=== PATIENT | male | born 1970 | race African-American/Black ===

== ENCOUNTER → 2017-12-05 | Outpatient (CLI) | payer BC ==
[~2017-12-05] VITALS: Ht 177.8 cm; Wt 127.9 kg
[~2017-12-05] MED LIST: ALDACTONE25 MG PO; CARDIZEM CD180 MG PO; COREG25 MG PO; COZAAR 50 MG TA50 M2 PO; HYDROXYCHLOROQ200 M1 PO; NAPROSYN500 MG PO; NORCO 10-325 T1 EACH PO; NORVASC10 MG PO; PRINIVIL20 MG PO
--- NOTE | ~2017-12-05 | CATHLAB ---
[facility] [place] [address] INVASIVE PROCEDURE REPORT Name: ANGELICA ZAVALETA Room #: REG [facility]#: [id number] Admission: 12/05/17 Attend Phys: Tai Suarez MD Discharge: Date of : 66 Date of Service: 12/05/17 1146 Report #: [id number] THIS REPORT FOR: //name// APPROVED REPORT Study performed: 12/05/2017 09:34:16 Patient Details Patient Status: Out-Patient Room #: The patient is a 47 year-old male Event Personnel Tai Suarez Industrial Truck Operator, Steffen Atkins RN RN, Talha Santos Scrub, Lilia Nino RTR, ANGELA Scrub Procedures Performed Art Access - R femoral artery* Left Heart Cath w/or w/o Coronaries [id number] [facility] [id number] Initial Mod Sed Same Phys/QHP Gr5y 126351 Hemostasis w/ Mynx Indication Cardiomyopathy, Chest pain Risk Factors Obesity, Hypercholesterolemia, Hypertension Previous Procedures/Diagnoses Previous CHF Procedure Narrative The Right Groin^ was infiltrated with 1% Lidocaine subcutaneous anesthesia. A PINNACLE 5FR Sheath #[id number] sheath was inserted into the RFA^. Coronary angiography was performed using coronary diagnostic catheters. The right coronary system was accessed and visualized with a JR4 catheter. The left coronary system was accessed and visualized with a JL4 catheter. The left ventricle was accessed and visualized with a Pigtail catheter. Left ventricular/Aortic Valve gradient assessed via catheter pullback. Left ventriculogram was performed in 30 degree projection. Pre-demployment femoral angiogram was performed . Closure device was deployed with a 5 Fr Mynx. The patient tolerated the procedure well and there were no complications associated with the procedure. There was no hematoma. Intraoperative Conscious Sedation Sedation start time: 09:38 Case end Time: [facility] [address] [place] [address] INVASIVE PROCEDURE REPORT Name: ANGELICA ZAVALETA PIETRO Room #: REG [facility]#: [id number] Admission: 12/05/17 Attend Phys: Tai Suarez MD Discharge: Date of : 66 Date of Service: 12/05/17 1146 Report #: [id number] 09:55 Fentanyl 50 mcg Versed 2 mg Fluoro Time: 2.31 minutes Dose: DAP 6935.40 cGycm2 800 mGy Contrast Type and Amount: Omnipaque 125 ml Coronary Angiography The patient's coronary anatomy is right dominant. Diagnostic Cath Left Main Patent vessel, with no flow-limiting lesions. LAD There are no flow-limiting lesions in the proximal and mid segments. There is mild diffuse disease in the distal segment, 20%. The proximal segment of the LAD appears to be mildly ectatic. Diagonal 1 Patent vessel, with no flow-limiting lesions. Diagonal 2 Patent vessel, with no flow-limiting lesions. Circumflex Patent vessel, with no flow-limiting lesions. OM1 Moderate size caliber vessel, with no flow-limiting lesions. Right Coronary Dominant vessel, with no flow-limiting lesions. R PDA Patent vessel, with no flow-limiting lesions. RPLV Patent vessel, with no flow-limiting lesions. Left Ventriculography The left ventricle is mildly dilated in size with decreased contractility. The left ventricular ejection fraction is estimated to be 25-30%. Hemodynamics The aortic pressure is 150/119 mmHg with a mean of 134 mmHg. The left ventricular pressure is 145/8 mmHg with a mean of mmHg. The left ventricular end diastolic pressure is 23 mmHg. Conclusion 1. Severe, nonischemic cardiomyopathy. 2. Mild disease in the distal LAD. 3. Ectatic proximal LAD segment. 4. Recommend medical therapy. <ELECTRONICALLY SIGNED> By: Tai Suarez MD 12/05/17 1146 1146 1146 Tai Suarez MD /INF
--- NOTE | ~2017-12-05 | EKG ---
[place] [address] [address] [facility] [place] [address] ELECTROCARDIOGRAM REPORT Name: ANGELICA ZAVALETA Room #: REG [facility]#: [id number] Admission: 12/05/17 Attend Phys: Tai Suarez MD Discharge: Date of : 66 Report #: [id number] THIS REPORT FOR: //name// [facility] Test Date: 2017-12-05 Test Time: 08:40:07 Pat Name: ANGELICA ZAVALETA Department: Room: Gender: Barrel Rifler Broach: Tae BENNETT : 1970 Requested By: Tai Suarez Order Number: [id number] MD: Ruy Glover Measurements Intervals [place] Rate: 97 P: 33 MN: 171 QRS: 43 QRSD: 112 T: 109 QT: 379 QTc: 482 Interpretive Statements Sinus rhythm Probable left atrial enlargement Abnormal T, consider ischemia, lateral leads Compared to ECG 10/09/2010 13:05:12 T-wave abnormality now present Electronically Signed On 12-06-2017 8:05:58 CDT by Ruy Glover [email or web address] <ELECTRONICALLY SIGNED> By: Ruy Glover MD, [facility] 05/804 9 9 Ruy Glover MD, [facility] /EPI
[2017-12-05 08:27] VITALS: BP 167/117
[2017-12-05 09:05] LABS: HEMATOCRIT 38.6 % (42.0-52.0); HEMOGLOBIN 13.4 gm/dL (14.0-18.0); MCH 35.9 pg (26.0-34.0); MCHC 34.8 g/dL (28.0-37.0); MCV 103.2 fL (80.0-100.0); RBC 3.74 mil/uL (4.50-6.00); WBC 3.4 thou/uL (4.0-11.0)
[2017-12-05 09:14] LABS: CALCIUM 9.1 mg/dL (8.5-10.1); CREATININE 1.2 mg/dL (0.7-1.3); POTASSIUM 4.1 mmol/L (3.5-5.1)
== END | disposition home or self-care (01) ==
LOC: CATH 07:59
PROVIDERS: Internal Medicine Cardiovascular Disease
DX: I25.10 Atherosclerotic heart disease of native coronary artery without angina pectoris (principal); I10 Essential (primary) hypertension; E78.00 Pure hypercholesterolemia, unspecified; E66.09 Other obesity due to excess calories; Z98.890 Other specified postprocedural states; Z82.49 Family history of ischemic heart disease and other diseases of the circulatory system; Z79.899 Other long term (current) drug therapy; Z79.891 Long term (current) use of opiate analgesic

== ENCOUNTER 2018-04-03 04:40 | Emergency (ER) | payer BC ==
[~2018-04-03] VITALS: Ht 177.8 cm; Wt 120.2 kg
[~2018-04-03 04:40] MED LIST changes: +INDOMETHACIN 5050 M1 PO; +NORCO 5-325 TA1 EACH PO
[2018-04-03] MEDS ORDERED: PREDNISONE 20 M20 MG PO (05:08)
[2018-04-03] MEDS ORDERED: COLCHICINE0.6 MG PO (05:08)
== END 2018-04-03 05:34 | disposition home or self-care (01) ==
LOC: ER 04:40
DX: M10.071 Idiopathic gout, right ankle and foot (principal); I10 Essential (primary) hypertension; I42.9 Cardiomyopathy, unspecified; Z96.651 Presence of right artificial knee joint; Z90.89 Acquired absence of other organs; Z88.8 Allergy status to other drugs, medicaments and biological substances

== ENCOUNTER 2018-06-23 08:08 | Emergency (ER) | payer BC ==
[~2018-06-23] VITALS: Ht 177.8 cm; Wt 125.2 kg
--- NOTE | ~2018-06-23 | EKG ---
[place] [address] [place] [address] ELECTROCARDIOGRAM REPORT Name: ANGELICA ZAVALETA [id number] Admission: 06/23/18 Attend Phys: Discharge: Date of : 66 Report #: [id number] THIS REPORT FOR: //name// [facility] ED Test Date: 2018-06-23 Test Time: 08:25:45 Pat Name: ANGELICA ZAVALETA Department: Room: Gender: Ic Designer [employer]: [facility] : 1970 Requested By: Luis Armando Tena Order Number: [id number] MD: Ruy Glover Measurements Intervals [place] Rate: 91 P: 42 DC: 181 QRS: 35 QRSD: 106 T: 96 QT: 380 QTc: 468 Interpretive Statements Sinus rhythm Nonspecific T abnormalities, lateral leads Compared to ECG 06/19/2018 21:39:22 Ventricular premature complex(es) no longer present Electronically Signed On 06-23-2018 10:42:50 NETWORK DESIGNER by Ruy Glover [email or web address] <ELECTRONICALLY SIGNED> By: Ruy Glover MD, [facility] 06/23/18 1042 0825 4 Ruy Glover MD, FACC /EPI
[~2018-06-23 08:08] MED LIST changes: +COLCHICINE0.6 MG PO; +PREDNISONE 20 M20 MG PO
[2018-06-23 10:50] LABS: ABSOLUTE NEUTROPHILS 3.2 thou/uL (1.4-8.2); BASOPHILS 1.1 % (0.0-2.0); HEMATOCRIT 34.6 % (42.0-52.0); HEMOGLOBIN 12.2 gm/dL (14.0-18.0); MCHC 35.3 g/dL (28.0-37.0); PLATELET COUNT 177 thou/uL (150-400); POLYS 68.9 % (36.0-66.0); RDW 15.4 % (10.5-14.5); WBC 4.6 thou/uL (4.0-11.0)
[2018-06-23 10:57] LABS: CALCIUM 8.9 mg/dL (8.5-10.1); CREATININE 1.2 mg/dL (0.7-1.3); POTASSIUM 4.2 mmol/L (3.5-5.1)
[2018-06-23 11:06] LABS: TROPONIN-I 0.16 ng/mL (<0.06)
[2018-06-23] MEDS ORDERED: VIBRAMYCIN 100100 MG PO (12:36)
[2018-06-23 12:50] VITALS: BP 143/78
== END 2018-06-23 12:51 | disposition home or self-care (01) ==
LOC: ER 08:08
PROVIDERS: Emergency Medicine
DX: R07.89 Other chest pain (principal); R79.89 Other specified abnormal findings of blood chemistry; I42.9 Cardiomyopathy, unspecified; I10 Essential (primary) hypertension; D86.9 Sarcoidosis, unspecified; M10.9 Gout, unspecified; Z96.651 Presence of right artificial knee joint; Z90.89 Acquired absence of other organs; Z88.8 Allergy status to other drugs, medicaments and biological substances

== ENCOUNTER → 2018-07-04 | Outpatient (CLI) | payer BC ==
[~2018-07-04] MED LIST changes: +VIBRAMYCIN 100100 MG PO
--- NOTE | ~2018-07-04 | 2DMMODE ---
[facility] [address] [place] [address] 2 D/M-MODE ECHOCARDIOGRAM Name: ANGELICA ZAVALETA Room #: REG [facility]#: [id number] Admission: 07/04/18 Attend Phys: Ismael Lainez Discharge: Date of : 66 Date of Service: 07/04/18 1337 Report #: [id number] THIS REPORT FOR: //name// ADDENDUM APPROVED REPORT Study performed: 07/04/2018 10:56:24 EXAM: Comprehensive 2D, Doppler, and color-flow Echocardiogram Patient Location: Out-Patient Status: routine BSA: 2.39 HR: 100 bpm BP: 128/92 mmHg Rhythm: Tachycardia Other Information Study Quality: Adequate Indications Non-ischemic cardiomyopathy. Hx: Heart failure, HTN, obesity. 2D Dimensions RVDd: 31.72 mm IVSd: 12.00 (7-11mm) LVOT Diam: 22.82 (18-24mm) LVDd: 64.00 mm PWd: 12.00 (7-11mm) Ascending Ao: 41.00 (22-36mm) LVDs: 53.00 (25-40mm) Aortic Root: 41.00 mm Volumes Left Atrial Volume (Systole) Single Plane 4CH: 58.15 mL Single Plane 2CH: 82.36 mL LA ESV Index: 33.00 mL/m2 Aortic Valve AoV Peak Tim.: 1.24 m/s AO Peak Gr.: 6.18 mmHg LVOT Max P.81 mmHg LVOT Max V: 0.84 m/s BANG Vmax: 2.75 cm2 Mitral Valve E/A Ratio: 1.3 MV Decel. Time: 172.07 ms MV E Max Tim.: 0.66 m/s [facility] [address] [address] 2 D/M-MODE ECHOCARDIOGRAM Name: ANGELICA ZAVALETA PIETRO Room #: [facility]#: [id number] Admission: 07/04/18 Attend Phys: Ismael Lainez Discharge: Date of : 66 Date of Service: 07/04/18 1337 Report #: [id number] MV A Tim.: 0.52 m/s MV PHT: 49.90 ms IVRT: 85.35 ms Pulmonary Valve PV Peak Tim.: 0.87 m/s PV Peak Gr.: 3.04 mmHg Pulmonary Vein P Vein S: 0.54 m/s P Vein D: 0.64 m/s P Vein S/D Ratio: 0.84 Tricuspid Valve TR Peak Tim.: 1.86 m/s TR Peak Gr.: 13.79 mmHg Left Ventricle Left ventricle is moderately dilated. Mild concentric left ventricular hypertrophy. Left ventricular systolic function is moderately decreased. LVEF is 35-40%. No distinctive pattern of diastology. Right Ventricle The right ventricle is normal size. Right ventricle is hypokinetic. Atria Left atrium is at the upper limits of normal. The right atrium size is normal. Aortic Valve The aortic valve is normal in structure. Trace to mild aortic regurgitation. There is no aortic valvular stenosis. Mitral Valve The mitral valve is normal in structure. Mild mitral regurgitation. Tricuspid Valve The tricuspid valve is normal in structure. Trace tricuspid regurgitation. Estimated PAP is 14mmHg plus the right atrial pressure. Pulmonic Valve The pulmonary valve is normal in structure. Mild pulmonic regurgitation. [facility] [place] [address] 2 D/M-MODE ECHOCARDIOGRAM Name: ANGELICA ZAVALETA Room #: REG [facility]#: [id number] Admission: 07/04/18 Attend Phys: Ismael Lainez Discharge: Date of : 66 Date of Service: 07/04/18 1337 Report #: [id number] Great Vessels Both the aortic root and ascending aorta are dilated at 4.1cm. IVC is not well visualized. Pericardium There is no pericardial effusion. <Conclusion> Left ventricle is moderately dilated. Mild concentric left ventricular hypertrophy. LVEF is 30% mod severe global hypokinesis. No distinctive pattern of diastology. The right ventricle is normal size. Left atrium is at the upper limits of normal. Trace to mild aortic regurgitation. Mild mitral regurgitation. Trace tricuspid regurgitation. Estimated PAP is 14mmHg plus the right atrial pressure. Both the aortic root and ascending aorta are dilated at 4.1cm. There is no pericardial effusion. <ELECTRONICALLY SIGNED> By: Juan Akhtar MD, FACC 07/04/18 133 36 36 Juan Akhtar MD, FACC /INF
== END ==
LOC: CV 10:46
DX: I34.0 Nonrheumatic mitral (valve) insufficiency (principal); I37.1 Nonrheumatic pulmonary valve insufficiency; I51.7 Cardiomegaly; I42.8 Other cardiomyopathies; I50.9 Heart failure, unspecified; E66.9 Obesity, unspecified

== ENCOUNTER 2018-07-15 09:38 | Emergency (ER) | payer BC ==
[~2018-07-15] VITALS: Ht 177.8 cm; Wt 124.7 kg
[2018-07-15 09:39] VITALS: BP 151/102
[2018-07-15] MEDS ORDERED: SENNA-DOCUSATE1 EAC1 PO (10:33)
[2018-07-15] MEDS ORDERED: PERCOCET 7.5-31 EACH PO (10:33)
[2018-07-15] MEDS ORDERED: COLCHICINE0.6 MG PO (10:33)
[2018-07-15] MEDS ORDERED: PREDNISONE50 MG PO (10:33)
== END 2018-07-15 11:20 | disposition home or self-care (01) ==
LOC: ER 09:38
DX: M10.9 Gout, unspecified (principal); I10 Essential (primary) hypertension; Z88.8 Allergy status to other drugs, medicaments and biological substances

== ENCOUNTER 2018-08-05 02:19 | Emergency (ER) | payer BC ==
[~2018-08-05] VITALS: Ht 177.8 cm; Wt 127.0 kg
[~2018-08-05 02:19] MED LIST changes: +PERCOCET 7.5-31 EACH PO; +PREDNISONE50 MG PO; +SENNA-DOCUSATE1 EAC1 PO
[2018-08-05 03:31] LABS: CALCIUM 8.4 mg/dL (8.5-10.1); POTASSIUM 4.6 mmol/L (3.5-5.1)
[2018-08-05 03:37] LABS: ALBUMIN 3.6 g/dL (3.4-5.0); TOTAL BILIRUBIN 0.7 mg/dL (<0.1-1.0); TOTAL PROTEIN 6.8 g/dL (6.4-8.2)
[2018-08-05 04:03] LABS: HEMATOCRIT 36.7 % (42.0-52.0); HEMOGLOBIN 12.9 gm/dL (14.0-18.0); MCHC 35.2 g/dL (28.0-37.0); MCV 102.3 fL (80.0-100.0); PLATELET COUNT 112 thou/uL (150-400); RBC 3.59 mil/uL (4.50-6.00); RDW 14.4 % (10.5-14.5)
[2018-08-05 04:43] LABS: ABSOLUTE NEUTROPHILS 1.2 thou/uL (1.4-8.2); ATYPICAL LYMPHS 1 %
[2018-08-05 04:57] VITALS: BP 130/87
== END 2018-08-05 04:57 | disposition home or self-care (01) ==
LOC: ER 02:19
PROVIDERS: Emergency Medicine
DX: R51 Headache (principal); R06.02 Shortness of breath; I10 Essential (primary) hypertension; M10.9 Gout, unspecified; Z98.890 Other specified postprocedural states; Z96.651 Presence of right artificial knee joint; Z88.8 Allergy status to other drugs, medicaments and biological substances

== ENCOUNTER 2018-08-31 19:11 | Emergency (ER) | payer BC ==
[~2018-08-31] VITALS: Ht 177.8 cm; Wt 121.6 kg
[2018-08-31 22:14] VITALS: BP 151/101
== END 2018-08-31 22:15 | disposition home or self-care (01) ==
LOC: ER 19:11
DX: R51 Headache (principal); I10 Essential (primary) hypertension; K08.89 Other specified disorders of teeth and supporting structures; M10.9 Gout, unspecified; Z96.651 Presence of right artificial knee joint; Z88.8 Allergy status to other drugs, medicaments and biological substances

== ENCOUNTER → 2018-10-03 | Outpatient (CLI) | payer BC ==
--- NOTE | 2018-10-03 13:11 | 2DMMODE ---
[facility] [place] [address] 2 D/M-MODE ECHOCARDIOGRAM Name: ANGELICA ZAVALETA Room #: REG [facility]#: [id number] ������������� Admission: 10/03/18 ������������� Attend Phys: Ismael Lainez Discharge: ��� ������������� ��� Date of : 66 Date of Service: 10/03/18 1311 �� Report #: [id number] �������� ��������������������������������������������[id number] THIS REPORT FOR: //name// APPROVED REPORT Study performed: 10/03/2018 11:16:37 EXAM: Comprehensive 2D, Doppler, and color-flow Echocardiogram Patient Location: Out-Patient Status: routine BSA: 2.39 HR: 102 bpm BP: 155/95 mmHg Rhythm: Tachycardia Other Information Study Quality: Adequate Indications Cardiomyopathy Hx: heart failure, HTN, obesity 2D Dimensions RVDd: 36.33 mm IVSd: 15.26 (7-11mm) LVOT Diam: 27.20 (18-24mm) LVDd: 61.28 mm PWd: 15.59 (7-11mm) Ascending Ao: 39.48 (22-36mm) LVDs: 50.08 (25-40mm) Aortic Root: 34.43 mm Volumes Left Atrial Volume (Systole) Single Plane 4CH: 52.21 mL Single Plane 2CH: 50.47 mL LA ESV Index: 24.00 mL/m2 Aortic Valve AoV Peak Tim.: 0.97 m/s AO Peak Gr.: 3.78 mmHg LVOT Max P.97 mmHg LVOT Max V: 1.00 m/s BANG Vmax: 5.95 cm2 Mitral Valve E/A Ratio: 1.8 MV Decel. Time: 130.95 ms [facility] [address] [place] [address] 2 D/M-MODE ECHOCARDIOGRAM Name: ANGELICA ZAVALETA Room #: [facility]#: [id number] ������������� Admission: 10/03/18 ������������� Attend Phys: Ismael Lainez Discharge: ��� ������������� ��� Date of : 66 Date of Service: 10/03/18 1311 �� Report #: [id number] �������� ��������������������������������������������[id number] MV E Max Tim.: 0.92 m/s MV A Tim.: 0.52 m/s MV PHT: 37.98 ms IVRT: 106.11 ms Pulmonary Valve PV Peak Tim.: 0.73 m/s PV Peak Gr.: 2.14 mmHg Pulmonary Vein P Vein S: 0.43 m/s P Vein A: 0.26 m/s P Vein D: 0.70 m/s P Vein A Dur.: 83.0 msec P Vein S/D Ratio: 0.61 Left Ventricle Left ventricle is moderately dilated. Moderate concentric left ventricular hypertrophy. Left ventricular systolic function is moderately decreased. LVEF is 35-40%. Moderate diastolic dysfunction is present (pseudonormal filling). Right Ventricle The right ventricle is normal size. Right ventricle is hypokinetic. Atria The left atrium size is normal. The right atrium size is normal. Aortic Valve The aortic valve is normal in structure. Trace to mild aortic regurgitation. There is no aortic valvular stenosis. Mitral Valve The mitral valve is normal in structure. Mild mitral regurgitation. No evidence of mitral valve stenosis. Tricuspid Valve The tricuspid valve is normal in structure. There is no tricuspid valve regurgitation noted. Pulmonic Valve The pulmonary valve is normal in structure. Mild pulmonic regurgitation. Great Vessels The ascending aorta is dilated (3.9 cm). IVC is not visualized. [facility] [address] [place] [address] 2 D/M-MODE ECHOCARDIOGRAM Name: ANGELICA ZAVALETA Room #: [facility]#: [id number] ������������� Admission: 10/03/18 ������������� Attend Phys: Ismael Lainez Discharge: ��� ������������� ��� Date of : 66 Date of Service: 10/03/18 1311 �� Report #: [id number] �������� ��������������������������������������������[id number] Pericardium There is no pericardial effusion. <Conclusion> Left ventricular systolic function is moderately decreased. LVEF is 35-40%. The aortic valve is normal in structure. Trace to mild aortic regurgitation, no stenosis. The mitral valve is normal in structure. Mild mitral regurgitation. Pulmonary artery pressure could not be reliably ascertained The ascending aorta is dilated (3.9 cm). There is no pericardial effusion. ��������������������������������������������� <ELECTRONICALLY SIGNED> ���������������������������������������� By: Ruy Glover MD, [facility] ��������������������������������������������� 10/03/18 1311 10 10 Ruy Glover MD, [facility] /INF
== END ==
LOC: CV 06:58
DX: I08.8 Other rheumatic multiple valve diseases (principal); I11.0 Hypertensive heart disease with heart failure; I50.9 Heart failure, unspecified; E66.9 Obesity, unspecified; Z88.8 Allergy status to other drugs, medicaments and biological substances

== ENCOUNTER 2018-10-14 12:22 | Emergency (ER) | payer BC ==
[~2018-10-14] VITALS: Ht 177.8 cm; Wt 125.2 kg
[2018-10-14 12:52] LABS: ABSOLUTE NEUTROPHILS 5.3 thou/uL (1.4-8.2); BASOPHILS 0.5 % (0.0-2.0); HEMOGLOBIN 13.5 gm/dL (14.0-18.0); LYMPHOCYTES 5.4 % (24.0-44.0); MCH 36.2 pg (26.0-34.0); MCHC 34.7 g/dL (28.0-37.0); MCV 104.4 fL (80.0-100.0); PLATELET COUNT 211 thou/uL (150-400); POLYS 92.1 % (36.0-66.0); RBC 3.73 mil/uL (4.50-6.00); RDW 16.6 % (10.5-14.5); WBC 5.8 thou/uL (4.0-11.0)
[2018-10-14 12:57] LABS: CALCIUM 9.1 mg/dL (8.5-10.1); CREATININE 1.4 mg/dL (0.7-1.3); POTASSIUM 4.7 mmol/L (3.5-5.1)
[2018-10-14 13:06] LABS: ALBUMIN 4.1 g/dL (3.4-5.0); TOTAL BILIRUBIN 0.9 mg/dL (<0.1-1.0); TOTAL PROTEIN 7.6 g/dL (6.4-8.2); TROPONIN-I 0.17 ng/mL (<0.06)
[2018-10-14] MEDS ORDERED: PREDNISONE 20 M20 MG PO (14:22)
[2018-10-14] MEDS ORDERED: VENTOLIN HFA 1818 GM INH (14:22)
[2018-10-14] MEDS ORDERED: AUGMENTIN 875-1 EACH PO (14:22)
[2018-10-14 14:25] LABS: AMP/METHAMP Negative (Negative); BARBITURATES Negative (Negative); BENZODIAZEPINES Negative (Negative); COCAINE Negative (Negative); METHADONE Negative (Negative); OPIATES Negative (Negative); PCP Negative (Negative)
[2018-10-14 15:09] VITALS: BP 139/94
--- NOTE | 2018-10-15 16:34 | EKG ---
[place] [address] [address] [place] [address] ELECTROCARDIOGRAM REPORT Name: ANGELICA ZAVALETA [facility] [id number] ������������������ Admission: 10/14/18 ������������������ Attend Phys: Discharge: 10/14/18 ������������������ Date of : 66 Report #: [id number] ����������������������������������������������������������������� [id number] THIS REPORT FOR: //name// [facility] ED Test Date: 2018-10-14 Test Time: 12:53:19 Pat Name: ANGELICA ZAVALETA Department: Room: Gender: M Real Estate Teacher: LYNETTE : 1970 Requested By: Joes Moran Order Number: [id number] MD: Ruy Glover Measurements Intervals [place] Rate: 116 P: 52 TN: 166 QRS: 34 QRSD: 106 T: 145 QT: 339 QTc: 471 Interpretive Statements Sinus tachycardia Possible inferior infarct, age indeterminate Nonspecific ST and T wave abnormality Compared to ECG 06/23/2018 08:25:45 Heart rate has increased Electronically Signed On 10-15-2018 16:34:14 CDT by Ruy Glover [email or web address] ��������������������������������������������� <ELECTRONICALLY SIGNED> ���������������������������������������� By: Ruy Glover MD, [facility] ��������������������������������������������� 10/15/18 1634 1253 125 Ruy Glover MD, [facility] /EPI
== END 2018-10-14 15:12 | disposition home or self-care (01) ==
LOC: ER 12:22
PROVIDERS: Emergency Medicine
DX: J20.9 Acute bronchitis, unspecified (principal); J06.9 Acute upper respiratory infection, unspecified; R19.7 Diarrhea, unspecified; I42.9 Cardiomyopathy, unspecified; I10 Essential (primary) hypertension; M10.9 Gout, unspecified; D86.9 Sarcoidosis, unspecified; Z90.89 Acquired absence of other organs; Z88.8 Allergy status to other drugs, medicaments and biological substances

== ENCOUNTER 2018-11-24 07:00 | Emergency (ER) | payer BC ==
[~2018-11-24] VITALS: Ht 175.3 cm; Wt 120.7 kg
[~2018-11-24 07:00] MED LIST changes: +AUGMENTIN 875-1 EACH PO; +VENTOLIN HFA 1818 GM INH
[2018-11-24 07:30] LABS: BASOPHILS 0.3 % (0.0-2.0); EOSINOPHILS 0.4 % (0.0-3.0); HEMATOCRIT 39.3 % (42.0-52.0); HEMOGLOBIN 13.4 gm/dL (14.0-18.0); LYMPHOCYTES 24.1 % (24.0-44.0); MCH 35.7 pg (26.0-34.0); MCHC 34.1 g/dL (28.0-37.0); MCV 104.5 fL (80.0-100.0); MONOCYTES 7.2 % (1.0-8.0); PLATELET COUNT 241 thou/uL (150-400); RBC 3.76 mil/uL (4.50-6.00); RDW 13.7 % (10.5-14.5); WBC 5.9 thou/uL (4.0-11.0)
[2018-11-24 07:40] LABS: CALCIUM 8.9 mg/dL (8.5-10.1); CREATININE 1.3 mg/dL (0.7-1.3); POTASSIUM 3.8 mmol/L (3.5-5.1)
[2018-11-24] MEDS ORDERED: PERCOCET 7.5-31 EACH PO (08:09)
[2018-11-24 10:30] VITALS: BP 160/100
[2018-11-24] MEDS ORDERED: PREDNISONE 20 M20 MG PO (10:32)
[2018-11-24] MEDS ORDERED: VENTOLIN HFA 1818 GM INH (10:32)
--- NOTE | 2018-11-24 22:42 | EKG ---
[address] [address] ELECTROCARDIOGRAM REPORT Name: ANGELICA ZAVALETA [id number] ������������������ Admission: 11/24/18 ������������������ Attend Phys: Discharge: 11/24/18 ������������������ Date of : 66 Report #: [id number] ����������������������������������������������������������������� [id number] THIS REPORT FOR: //name// [facility] ED Test Date: 2018-11-24 Test Time: 07:25:12 Pat Name: ANGELICA ZAVALETA Department: Room: Gender: M Personnel And Payroll Technician: Tae ESTEVEZ RN : 1970 Requested By: Elver Roach Order Number: [id number] MD: Ismael Lainez Measurements Intervals [place] Rate: 102 P: 57 MS: 166 QRS: 68 QRSD: 119 T: 96 QT: 345 QTc: 450 Interpretive Statements Sinus tachycardia Probable left atrial enlargement Nonspecific intraventricular conduction delay Nonspecific T abnrm, anterolateral leads Compared to ECG 10/14/2018 12:53:19 Intraventricular conduction delay now present Myocardial infarct finding no longer present ST (T wave) deviation no longer present Electronically Signed On 11-24-2018 22:42:31 CDT by Ismael Lainez [email or web address] ��������������������������������������������� <ELECTRONICALLY SIGNED> ���������������������������������������� By: Ismael Lainez MD ��������������������������������������������� 11/24/18 2242 0725 0725 Ismael Lainez MD /EPI
== END 2018-11-24 10:54 | disposition home or self-care (01) ==
LOC: ER 07:00
PROVIDERS: Emergency Medicine
DX: R05 Cough (principal); R06.00 Dyspnea, unspecified; I10 Essential (primary) hypertension; M10.9 Gout, unspecified; Z88.8 Allergy status to other drugs, medicaments and biological substances

== ENCOUNTER 2018-12-03 08:03 | Inpatient (IN) | payer BC ==
[~2018-12-03] VITALS: Ht 177.8 cm; Wt 129.1 kg
--- NOTE | ~2018-12-03 | P ---
[facility] [place] [address] PROCEDURE REPORT Name: ANGELICA ZAVALETA Room #: 209-P [facility] IN M.R.#: [id number] Admission: 12/03/18 ������������������ Attend Phys: Rambo Valles MD Discharge: 12/05/18 ������������������ Date of : 66 Report #: [id number] THIS REPORT FOR: //name// CC: FAM unknown Rambo Valles PROCEDURE: ICD implantation. PREOPERATIVE DIAGNOSIS: Nonischemic cardiomyopathy. POSTOPERATIVE DIAGNOSIS: Nonischemic cardiomyopathy. PROCEDURES PERFORMED: Dual-chamber ICD implantation. HISTORY: The patient is a 48-year-old male with a history of a nonischemic cardiomyopathy, who has been on optimal medical therapy including beta leonard and losartan therapy. He has had a repeat echocardiogram during his hospitalization for acute heart failure and his EF is noted to be 30%-35%. He is, therefore, here for dual-chamber ICD implantation for primary prevention of sudden cardiac . ANESTHESIA: The patient underwent MAC anesthesia with no anesthesia related complications. DESCRIPTION OF PROCEDURE: The patient underwent informed consent. We discussed the details of the procedure including the risks, which include but not limited to bleeding, infection, vascular damage, cardiac perforation and pneumothorax. He understood these risks and is willing to proceed. The patient was brought to the EP laboratory in a fasting and nonsedated state and prepped and draped in a sterile fashion. Next, the patient received IV antibiotics and underwent a venogram showing patency of the left axillary vein. Next, I injected lidocaine below the level of clavicle. Incision was made, pocket was created over the prepectoral fascia. An access was obtained twice the left axillary vein using the extrathoracic approach. Sheaths were positioned using the modified Seldinger technique. Next, a lead was positioned in the right ventricular apex and an atrial lead was placed in the right atrial appendage both with adequate pacing and sensing thresholds. Leads were sutured to the prepectoral fascia and the device was connected. The pocket was irrigated and the pocket was closed in 2 layers using 2-0 for the deep layer, 3-0 for the mid layer and surgical glue was placed outer skin layer. The patient awoke neurologically and hemodynamically intact. No complications and no significant bleeding. The implanted defibrillator was a [employer] model #[id number], serial #[id number]. The atrial lead was a model #2088TC, 52 cm, serial #[id number] with a P-wave of 3.7 millivolts, pacing impedance of 560 ohms and the pacing threshold [facility] [address] [place] [address] PROCEDURE REPORT Name: ANGELICA ZAVALETA Room #: 209-P [facility] IN M.R.#: [id number] Admission: 12/03/18 ������������������ Attend Phys: Rambo Valles MD Discharge: 12/05/18 ������������������ Date of : 66 Report #: [id number] 0.5 volts at 0.5 milliseconds. The RV lead was a [employer] model #7120Q, 65 cm, serial #[id number]. This lead demonstrated an R-wave of 7.8 millivolts, pacing impedance of 550 ohms and pacing threshold 0.5 volts at 0.5 milliseconds. The device was programmed to the DDDR 60-130 mode. The VT zone was set at 180-220 beats per minute with 3 rounds of burst, followed by 3 rounds of ramp 5, followed by max output shocks. The VF zone was set at greater than 222 beats per minute with ATP while charging followed by max output shocks. CONCLUSIONS: 1. Successful dual-chamber ICD implantation. 2. Satisfactory atrial and ventricular pacing and sensing thresholds. ��������������������������������������������� ���������������������������������������� By: ��������������������������������������������� 1214 1201 Ismael Lainez MD /nt
[2018-12-03 08:06] VITALS: BP 126/88
[2018-12-03 08:31] LABS: ABSOLUTE NEUTROPHILS 2.4 thou/uL (1.4-8.2); BASOPHILS 1.6 % (0.0-2.0); EOSINOPHILS 2.9 % (0.0-3.0); HEMATOCRIT 37.4 % (42.0-52.0); LYMPHOCYTES 24.3 % (24.0-44.0); MCH 35.9 pg (26.0-34.0); MCHC 34.7 g/dL (28.0-37.0); MCV 103.5 fL (80.0-100.0); MONOCYTES 11.4 % (1.0-8.0); PLATELET COUNT 226 thou/uL (150-400); POLYS 59.8 % (36.0-66.0); RBC 3.62 mil/uL (4.50-6.00); RDW 13.5 % (10.5-14.5); WBC 4.1 thou/uL (4.0-11.0)
[2018-12-03 08:39] LABS: CREATININE 1.2 mg/dL (0.7-1.3)
[2018-12-03 08:48] LABS: APTT 30.6 Seconds (24.5-32.8); D-DIMER 0.33 ug/mLFEU (0.19-0.50); PROTIME 10.3 Seconds (9.3-11.4)
[2018-12-03 08:49] LABS: ALBUMIN 3.4 g/dL (3.4-5.0); MAGNESIUM 1.6 mg/dL (1.8-2.4); TOTAL BILIRUBIN 0.5 mg/dL (<0.1-1.0); TOTAL PROTEIN 6.3 g/dL (6.4-8.2); TROPONIN-I 0.23 ng/mL (<0.06)
[2018-12-03 09:26] VITALS: BP 140/101
[2018-12-03 09:34] VITALS: BP 137/91
[2018-12-03 10:40] VITALS: BP 123/79
--- NOTE | 2018-12-03 12:54 | NUR ---
PT ARRIVED TO UNIT AT APPROX 1000 BY ER STAFF ACCOMPANIED BY SISTER. PT ALERT AND ORIENTED, VSS, UP AD OLVIN, C/O PAIN IN RIGH UPPER ABDOMEN- WILL TREAT PRN PER EMAR. ADMISSION COMPLETED, CONSENTS SIGNED, TELE PUT ON- ADMIT STRIP PRINTED AND DOCUMENTED. WILL ACKNOWLEDGE AND IMPLEMENT FURTHER ORDERS. PT DENIES CONCERNS AT THIS TIME. WILL CONTINUE TO MONITOR AND FOLLOW POC.
[2018-12-03 13:20] LABS: AMP/METHAMP Negative (Negative); BARBITURATES Negative (Negative); BENZODIAZEPINES Negative (Negative); COCAINE Negative (Negative); METHADONE Negative (Negative); OPIATES Negative (Negative); PCP Negative (Negative)
--- NOTE | 2018-12-03 14:02 | 2DMMODE ---
[facility] [place] [address] 2 D/M-MODE ECHOCARDIOGRAM Name: ANGELICA ZAVALETA Room #: 209-P ADM IN M.R.#: [id number] ������������� Admission: 12/03/18 ������������� Attend Phys: Rambo Valles MD Discharge: ��� ������������� ��� Date of : 66 Date of Service: 12/03/18 1402 �� Report #: [id number] �������� ��������������������������������������������[id number] THIS REPORT FOR: //name// APPROVED REPORT Study performed: 12/03/2018 13:19:03 EXAM: Limited 2D, Doppler, and color-flow Echocardiogram Patient Location: Echo lab Room #: 209 Status: routine BSA: 2.35 HR: 94 bpm BP: 123/79 mmHg Rhythm: Regular Other Information Study Quality: Adequate Indications Follow up echo for short of breath, CHF. Hx: NISCM, HTN. (Complete echo done 10/03/18) 2D Dimensions LVDd: 60.42 mm LVDs: 48.06 (25-40mm) Aortic Valve AoV Peak Tim.: 1.03 m/s AO Peak Gr.: 4.27 mmHg Left Ventricle Left ventricle is dilated. There is global hypokinesis of the left ventricle. Concentric left ventricular hypertrophy. Left ventricular systolic function is moderately decreased. LVEF is 30-35%. Right Ventricle The right ventricle is normal size. The right ventricular systolic function is normal. Atria The left atrium size is normal. The right atrium size is normal. Aortic Valve The aortic valve is normal in structure. Trace aortic regurgitation. [facility] [address] [address] 2 D/M-MODE ECHOCARDIOGRAM Name: ANGELICA ZAVALETA Room #: 209-P ADM IN M.R.#: [id number] ������������� Admission: 12/03/18 ������������� Attend Phys: Rambo Valles MD Discharge: ��� ������������� ��� Date of : 66 Date of Service: 12/03/18 1402 �� Report #: [id number] �������� ��������������������������������������������[id number] There is no aortic valvular stenosis. Mitral Valve The mitral valve is normal in structure. Mild mitral regurgitation. Tricuspid Valve The tricuspid valve is normal in structure. There is no tricuspid valve regurgitation noted. Unable to assess PA pressure. Great Vessels IVC is not well visualized. Pericardium Small amount of pericardial fluid noted by the RV. <Conclusion> Left ventricle is dilated. LVEF is 30-35%. There is global hypokinesis of the left ventricle. The aortic valve is normal in structure. Trace aortic regurgitation. The mitral valve is normal in structure. Mild mitral regurgitation. The tricuspid valve is normal in structure. There is no tricuspid valve regurgitation noted. Unable to assess PA pressure. Small amount of pericardial fluid noted by the RV. ��������������������������������������������� <ELECTRONICALLY SIGNED> ���������������������������������������� By: Servando Grande MD ��������������������������������������������� 12/03/18 1402 1402 1402 Servando Grande MD /INF
[2018-12-03 17:00] VITALS: BP 153/106
--- NOTE | 2018-12-03 18:42 | NUR ---
PT CONTINUES TO BE ALERT AND ORIENTED, VSS,- BP ELEVATED, WILL MANAGE WITH SCHEDULED CARD MEDS. PT FAMILY VISITED WITH PT AT BEDSIDE THROUGHOUT DAY. O2 SATS WNL ON ROOM AIR, NO C/O SOB, NITRO PASTE CONTINUES TO BE ON PT, DENIES CHEST PAIN. APPETITE ADEQUATE, DENIES CONCERNS AT THIS TIME. PT CURRENTLY RESTING UP IN CHAIR WITH FRIEND AT BEDSIDE. WILL CONTINUE TO MONITOR.
[2018-12-03 20:15] VITALS: BP 144/102
--- NOTE | 2018-12-04 00:58 | NUR ---
SHIFT NOTE PT ALERT AND ORIENTED. VSS. PT TURNS SELF IN BED. UP AB OLVIN. PT HAS NO S/SX OF PAIN, SOA, CHEST PAIN, OR NV. PT ASSESSMENT AND VS CHARTED WILL CONTINUE TO MONITOR TILL THE END OF THE SHIFT.
[2018-12-04 03:30] VITALS: BP 87/53
[2018-12-04 04:45] VITALS: BP 110/63
[2018-12-04 05:04] LABS: ABSOLUTE NEUTROPHILS 4.1 thou/uL (1.4-8.2); BASOPHILS 1.2 % (0.0-2.0); EOSINOPHILS 2.7 % (0.0-3.0); HEMATOCRIT 39.7 % (42.0-52.0); HEMOGLOBIN 13.9 gm/dL (14.0-18.0); LYMPHOCYTES 18.4 % (24.0-44.0); MCH 35.9 pg (26.0-34.0); MCV 102.7 fL (80.0-100.0); MONOCYTES 10.5 % (1.0-8.0); PLATELET COUNT 247 thou/uL (150-400); POLYS 67.2 % (36.0-66.0); RBC 3.87 mil/uL (4.50-6.00); RDW 13.6 % (10.5-14.5)
[2018-12-04 05:18] LABS: CALCIUM 8.8 mg/dL (8.5-10.1); CREATININE 1.2 mg/dL (0.7-1.3); MAGNESIUM 1.6 mg/dL (1.8-2.4); POTASSIUM 4.2 mmol/L (3.5-5.1); TROPONIN-I 0.21 ng/mL (<0.06)
[2018-12-04 06:43] VITALS: BP 111/71
--- NOTE | 2018-12-04 08:09 | EKG ---
[address] [address] ELECTROCARDIOGRAM REPORT Name: ANGELICA ZAVALETA Room #: 209-P ADM IN M.R.#: [id number] ������������������ Admission: 12/03/18 ������������������ Attend Phys: Rambo Valles MD Discharge: ������������������ Date of : 66 Report #: [id number] ����������������������������������������������������������������� [id number] THIS REPORT FOR: //name// [facility] ED Test Date: 2018-12-03 Test Time: 08:30:41 Pat Name: ANGELICA ZAVALETA Department: Room: 209 Gender: M Flake Or Shred Roll Operator: HUGO : 1970 Requested By: Jose Moran Order Number: [id number] MD: Ismael Lainez Measurements Intervals [place] Rate: 96 P: 40 IN: 173 QRS: 40 QRSD: 116 T: 121 QT: 387 QTc: 490 Interpretive Statements Sinus rhythm Probable left atrial enlargement Nonspecific intraventricular conduction delay Baseline wander in lead(s) V4 Compared to ECG 11/24/2018 07:25:12 Electronically Signed On 12-04-2018 8:09:08 CDT by Ismael Lainez [email or web address] ��������������������������������������������� <ELECTRONICALLY SIGNED> ���������������������������������������� By: Ismael Lainez MD ��������������������������������������������� 12/04/1809 9 9 Ismael Lainez MD /[facility]
[2018-12-04 08:24] VITALS: BP 102/72
--- NOTE | 2018-12-04 18:33 | NUR ---
ASSUMED CARE OF PT AT APPROX 0700. PT IS ALERT AND ORIENTED X4, MONITORED ON TELE AND ABLE TO MAINTAIN 02 SAT >90 ON RA. DENIES PAIN CURRENTLY. PT WENT FOR ICD PLACEMENT APPROX 1000 PT RETURNED TO UNIT APPROX 1600, VSS, LEFT SUBCLAVIAN INCISION C/D/I WITH IMMOBILIZER IN PLACE. PT IS REFUSING POST OP VITALS, CONTINUED TO EDUCATE PT ON IMPORTANCE OF VITALS AND IMORTANCE OF BEDREST AND KEEPING LEFT ARM DOWN. PT AGREES ABOUT IMMOBILIZING ARE BUT DOES NOT WANT VITALS. REPLACED MAG PER ORDER. DENIES PAIN AND CONTINUES TO REST OFF AND ON. NO FURTHER COMPLAINTS AT THIS TIME. PT MAKING GOOD PROGESS TOWARDS POC GOALS. WILL CONTINUE TO MONITOR.
[2018-12-04 20:10] VITALS: BP 137/98
[2018-12-05 02:23] VITALS: BP 137/98
--- NOTE | 2018-12-05 04:04 | NUR ---
ASSUMED PT CARE AT 1900. PT A/OX4, VITAL SIGNS STABLE, ASSESSMENT CHARTED. NO COMPLAINTS OF PAIN/CHEST PAIN. EXERTIONAL DYSPNEA. SLOW DEEP BREATHS HELPS. LEFT CHEST ICD SITE CLEAN, DRY, INTACT. BEDREST MAINTAINED. IMMOBILIZER IN PLACE. FAMILY AT BEDSIDE THROUGH THE NIGHT. PT DID NOT GET MUCH REST. TOILETING OFFERED/PROVIDED EVERY 2 HOURS. PROGRESSING TOWARD PLAN OF CARE. WILL CONTINUE TO MONITOR.
[2018-12-05 04:40] LABS: CALCIUM 8.3 mg/dL (8.5-10.1); CREATININE 1.2 mg/dL (0.7-1.3); POTASSIUM 4.2 mmol/L (3.5-5.1)
[2018-12-05 04:45] VITALS: BP 127/80
[2018-12-05 07:48] VITALS: BP 121/72
[2018-12-05] MEDS ORDERED: POTASSIUM20 PO (11:50)
[2018-12-05] MEDS ORDERED: COZAAR 50 MG TA50 M1 PO (11:50)
[2018-12-05] MEDS ORDERED: LASIX 40 MG TAB40 M2 PO (11:50)
[2018-12-05 12:08] VITALS: BP 103/70
[2018-12-05] MEDS ORDERED: LASIX 40 MG TAB40 M1 PO (13:19)
[2018-12-05] MEDS ORDERED: NITROGLYCERIN0.4 MG SUBLING (13:19)
[2018-12-05] MEDS ORDERED: ACETAMINOPHEN325 M1 PO (13:19)
[2018-12-05 13:36] VITALS: BP 103/70
--- NOTE | 2018-12-05 15:07 | NUR ---
ASSUMED CARE THIS AM AT 0700. AWAKE AND ALERT, NO COMPLIANTS OF CP OR DIZZINESS. SOME MILD STOMACH UPSET STATED. NO EMESIS. L CHEST INCISION APPROXIMATED W/O S/S OF HEMATOMA. NO DRAINAGE NOTED. LUE SLING IN PLACE. SR ON THE MONITOR. CHEST XRAY COMPLETED AT WELL PACER INTERROGATION AT 0830. ZOFRAN IV GIVEN FOR NAUSEA WITH GOOD RESULTS, NO CP. DISCHARGE ORDERS RECIEVED, RN CLINICAL DOCUMENTATION REMOVED WELL PIV'S X2. MEDICATIONS AND DISCHARGE INSTRUCTIONS COMPLETED WITH PATIENT. DISCHARGED IN STABLE CONDITION VIA WHEELCHAIR
== END 2018-12-05 14:15 | disposition home or self-care (01) | DRG 227 ==
LOC: ER 08:03 → EROBS 09:02 → 2N 09:02 → ENTRNSPT 12-05 14:08 → 2N 12-05 14:15 → EDTRNSPTSTS 12-05 14:33
PROVIDERS: Emergency Medicine; Internal Medicine Cardiovascular Disease; Nurse Practitioner; ADMIT Internal Medicine
PROC: 02HK3KZ Insertion of Defibrillator Lead into Right Ventricle, Percutaneous Approach (ICD-10-PCS; principal; 2018-12-04)
PROC: B51N1ZZ Fluoroscopy of Left Upper Extremity Veins using Low Osmolar Contrast (ICD-10-PCS; principal; 2018-12-04)
PROC: 02H63KZ Insertion of Defibrillator Lead into Right Atrium, Percutaneous Approach (ICD-10-PCS; principal; 2018-12-04)
PROC: 0JH608Z Insertion of Defibrillator Generator into Chest Subcutaneous Tissue and Fascia, Open Approach (ICD-10-PCS; principal; 2018-12-04)
DX: I11.0 Hypertensive heart disease with heart failure (principal); Z68.41 Body mass index [BMI] 40.0-44.9, adult; E83.42 Hypomagnesemia; D53.9 Nutritional anemia, unspecified; E11.65 Type 2 diabetes mellitus with hyperglycemia; I42.9 Cardiomyopathy, unspecified; M10.9 Gout, unspecified; F41.1 Generalized anxiety disorder; I25.10 Atherosclerotic heart disease of native coronary artery without angina pectoris; D86.3 Sarcoidosis of skin; I50.23 Acute on chronic systolic (congestive) heart failure; I08.0 Rheumatic disorders of both mitral and aortic valves; E66.01 Morbid (severe) obesity due to excess calories; Z79.899 Other long term (current) drug therapy; Z88.8 Allergy status to other drugs, medicaments and biological substances; Z82.5 Family history of asthma and other chronic lower respiratory diseases; Z82.49 Family history of ischemic heart disease and other diseases of the circulatory system

== ENCOUNTER 2019-03-07 09:03 | Emergency (ER) | payer BC ==
[~2019-03-07] VITALS: Ht 177.8 cm; Wt 120.2 kg
[~2019-03-07 09:03] MED LIST changes: +ACETAMINOPHEN325 M1 PO; +COZAAR 50 MG TA50 M1 PO; +LASIX 40 MG TAB40 M1 PO; +LASIX 40 MG TAB40 M2 PO; +NITROGLYCERIN0.4 MG SUBLING; +POTASSIUM20 PO
[2019-03-07] MEDS ORDERED: PERCOCET 7.5-31 EAC1 PO (09:08)
[2019-03-07 09:30] LABS: HEMATOCRIT 35.2 % (42.0-52.0); HEMOGLOBIN 12.3 gm/dL (14.0-18.0); MCH 35.7 pg (26.0-34.0); MCV 102.2 fL (80.0-100.0); PLATELET COUNT 148 thou/uL (150-400); RBC 3.44 mil/uL (4.50-6.00); RDW 17.6 % (10.5-14.5); WBC 3.9 thou/uL (4.0-11.0)
[2019-03-07 09:38] LABS: CALCIUM 8.8 mg/dL (8.5-10.1); CREATININE 1.2 mg/dL (0.7-1.3); POTASSIUM 4.2 mmol/L (3.5-5.1)
[2019-03-07 09:48] LABS: ALBUMIN 3.9 g/dL (3.4-5.0); MAGNESIUM 1.5 mg/dL (1.8-2.4); TROPONIN-I 0.25 ng/mL (<0.06)
[2019-03-07 10:19] LABS: ABSOLUTE NEUTROPHILS 2.1 thou/uL (1.4-8.2)
[2019-03-07 10:20] LABS: PLATELET ESTIMATE NORMAL
[2019-03-07] MEDS ORDERED: PROAIR HFA8.5 GM INH (10:51)
[2019-03-07 11:11] VITALS: BP 144/79
--- NOTE | 2019-03-11 07:38 | EKG ---
[place] [address] [employer] [facility] [place] [address] ELECTROCARDIOGRAM REPORT Name: ANGELICA ZAVALETA [id number] Admission: 03/07/19 Attend Phys: Discharge: 03/07/19 Date of : 66 Report #: [id number] THIS REPORT FOR: //name// [facility] ED Test Date: 2019-03-07 Test Time: 09:05:09 Pat Name: ANGELICA ZAVALETA Department: Room: Gender: M Sat Instructor: LUTHER : 1970 Requested By: Anson Carrion Order Number: [id number] MD: Ruy Glover Measurements Intervals [place] Rate: 105 P: 53 MA: 169 QRS: 67 QRSD: 107 T: 83 QT: 372 QTc: 492 Interpretive Statements Sinus tachycardia Nonspecific ST and T wave abnormality Borderline prolonged QT interval Compared to ECG 12/03/2018 08:30:41 No significant change was found Electronically Signed On 03-11-2019 7:38:03 CDT by Ruy Glover [email or web address] <ELECTRONICALLY SIGNED> By: Ruy Glover MD, [facility] 03/11/19 0738 4 4 Ruy Glover MD, [facility] /EPI
== END 2019-03-07 11:22 | disposition home or self-care (01) ==
LOC: ER 09:03
PROVIDERS: Emergency Medicine
DX: R06.02 Shortness of breath (principal); Z88.8 Allergy status to other drugs, medicaments and biological substances; I42.9 Cardiomyopathy, unspecified; I10 Essential (primary) hypertension; M10.9 Gout, unspecified; D86.9 Sarcoidosis, unspecified; Z96.651 Presence of right artificial knee joint; Z90.89 Acquired absence of other organs; Z95.0 Presence of cardiac pacemaker

== ENCOUNTER 2019-05-29 08:12 | Emergency (ER) | payer BC ==
[~2019-05-29] VITALS: Ht 177.8 cm; Wt 124.7 kg
[~2019-05-29 08:12] MED LIST changes: +PERCOCET 7.5-31 EAC1 PO; +PROAIR HFA8.5 GM INH
[2019-05-29 09:02] LABS: ABSOLUTE NEUTROPHILS 3.4 thou/uL (1.4-8.2); EOSINOPHILS 3.2 % (0.0-3.0); HEMATOCRIT 38.4 % (42.0-52.0); LYMPHOCYTES 22.4 % (24.0-44.0); MCH 37.1 pg (26.0-34.0); MCHC 33.8 g/dL (28.0-37.0); MCV 109.8 fL (80.0-100.0); MONOCYTES 10.5 % (1.0-8.0); PLATELET COUNT 189 thou/uL (150-400); POLYS 62.9 % (36.0-66.0); WBC 5.5 thou/uL (4.0-11.0)
--- NOTE | 2019-05-29 09:06 | EKG ---
[address] [place] [address] ELECTROCARDIOGRAM REPORT Name: ANGELICA ZAVALETA Room #: [facility].#: [id number] Admission: Attend Phys: Discharge: Date of : 66 Report #: [id number] THIS REPORT FOR: //name// [facility] ED Test Date: 2019-05-29 Test Time: 08:19:25 Pat Name: ANGELICA ZAVALETA Department: Room: Gender: Manager Applied: LUTHER : 1970 Requested By: Elver Roach Order Number: [id number] MD: Ruy Glover Measurements Intervals [place] Rate: 100 P: 49 PA: 164 QRS: 55 QRSD: 104 T: 63 QT: 372 QTc: 480 Interpretive Statements Sinus tachycardia Borderline T wave abnormalities Borderline prolonged QT interval Compared to ECG 03/07/2019 09:05:09 No significant change was found Electronically Signed On 05-29-2019 9:06:36 SALES AND SERVICE TECHNICIAN by Ruy Glover [email or web address] <ELECTRONICALLY SIGNED> By: Ruy Glover MD, [facility] 05/29/19905 8 8 Ruy Glover MD, [facility] /EPI
[2019-05-29 09:13] LABS: CALCIUM 9.2 mg/dL (8.5-10.1); CREATININE 1.3 mg/dL (0.7-1.3); POTASSIUM 4.2 mmol/L (3.5-5.1)
[2019-05-29 09:21] LABS: TROPONIN-I 0.13 ng/mL (<0.06)
[2019-05-29 10:02] LABS: ANISOCYTOSIS 2+; MACROCYTES 1+; PLATELET ESTIMATE NORMAL
[2019-05-29] MEDS ORDERED: ZPAK PO (12:44)
[2019-05-29 12:55] VITALS: BP 138/100
== END 2019-05-29 12:57 | disposition home or self-care (01) ==
LOC: ER 08:12
PROVIDERS: Emergency Medicine
DX: J18.9 Pneumonia, unspecified organism (principal); I10 Essential (primary) hypertension; M10.9 Gout, unspecified; Z88.8 Allergy status to other drugs, medicaments and biological substances; Z98.890 Other specified postprocedural states

== ENCOUNTER 2019-06-26 23:11 | Emergency (ER) | payer BC ==
[~2019-06-26] VITALS: Ht 180.3 cm; Wt 123.4 kg
[~2019-06-26 23:11] MED LIST changes: +ZPAK PO
[2019-06-26 23:12] VITALS: BP 172/112
[2019-06-26] MEDS ORDERED: MITIGARE0.6 MG PO (23:40)
[2019-06-26] MEDS ORDERED: PREDNISONE 20 M20 MG PO (23:40)
== END 2019-06-26 23:56 | disposition home or self-care (01) ==
LOC: ER 23:11
DX: M10.9 Gout, unspecified (principal); I10 Essential (primary) hypertension; Z96.651 Presence of right artificial knee joint; Z90.49 Acquired absence of other specified parts of digestive tract; Z95.0 Presence of cardiac pacemaker; Z88.8 Allergy status to other drugs, medicaments and biological substances

== ENCOUNTER 2019-09-30 07:56 | Emergency (ER) | payer BC ==
[~2019-09-30] VITALS: Ht 177.8 cm; Wt 121.6 kg
[~2019-09-30 07:56] MED LIST changes: +MITIGARE0.6 MG PO
[2019-09-30 08:12] VITALS: BP 142/97
== END 2019-09-30 08:37 | disposition home or self-care (01) ==
LOC: ER 07:56
DX: R09.82 Postnasal drip (principal); R05 Cough; I10 Essential (primary) hypertension; M10.9 Gout, unspecified; Z88.8 Allergy status to other drugs, medicaments and biological substances; Z79.899 Other long term (current) drug therapy; Z95.0 Presence of cardiac pacemaker

== ENCOUNTER 2019-10-31 04:18 | Emergency (ER) | payer BC ==
[~2019-10-31] VITALS: Ht 177.8 cm; Wt 124.7 kg
[2019-10-31 04:20] VITALS: BP 152/104
[2019-10-31] MEDS ORDERED: PREDNISONE50 MG PO (04:40)
== END 2019-10-31 04:59 | disposition home or self-care (01) ==
LOC: ER 04:18
DX: M10.072 Idiopathic gout, left ankle and foot (principal); I10 Essential (primary) hypertension; Z96.651 Presence of right artificial knee joint; Z98.890 Other specified postprocedural states; Z90.89 Acquired absence of other organs; Z95.0 Presence of cardiac pacemaker; Z79.899 Other long term (current) drug therapy; Z88.8 Allergy status to other drugs, medicaments and biological substances

== ENCOUNTER 2019-12-17 07:12 | Emergency (ER) | payer BC ==
[~2019-12-17] VITALS: Ht 177.8 cm; Wt 131.5 kg
[2019-12-17] MEDS ORDERED: ALLOPURINOL 10100 M3 PO (07:25)
[2019-12-17] MEDS ORDERED: METFORMIN HCL500 MG PO (07:26)
[2019-12-17 07:34] LABS: ABSOLUTE NEUTROPHILS 3.3 thou/uL (1.4-8.2); EOSINOPHILS 2.7 % (0.0-3.0); HEMATOCRIT 38.8 % (42.0-52.0); HEMOGLOBIN 13.6 gm/dL (14.0-18.0); LYMPHOCYTES 18.5 % (24.0-44.0); MCH 36.9 pg (26.0-34.0); MCHC 34.9 g/dL (28.0-37.0); MCV 105.6 fL (80.0-100.0); MONOCYTES 11.5 % (1.0-8.0); PLATELET COUNT 191 thou/uL (150-400); POLYS 66.3 % (36.0-66.0); RBC 3.68 mil/uL (4.50-6.00); WBC 4.9 thou/uL (4.0-11.0)
[2019-12-17 07:44] LABS: CALCIUM 7.8 mg/dL (8.5-10.1); CREATININE 1.2 mg/dL (0.7-1.3); POTASSIUM 3.7 mmol/L (3.5-5.1)
[2019-12-17 07:55] LABS: ALBUMIN 3.5 g/dL (3.4-5.0); TOTAL PROTEIN 6.7 g/dL (6.4-8.2); TROPONIN-I 0.24 ng/mL (<0.06)
[2019-12-17] MEDS ORDERED: PREDNISONE 20 M20 MG PO (11:15)
[2019-12-17 11:22] VITALS: BP 138/89
--- NOTE | 2019-12-17 16:06 | EKG ---
[facility] [place] [address] ELECTROCARDIOGRAM REPORT Name: ANGELICA ZAVALETA Room #: DEP [facility].#: [id number] Admission: 12/17/19 Attend Phys: Discharge: 12/17/19 Date of : 66 Report #: [id number] THIS REPORT FOR: cc: Compa Scott Louis D. DO Lundgren, Craig H. MD [facility] THIS REPORT FOR: //name// [facility] ED Test Date: 2019-12-17 Test Time: 07:15:40 Pat Name: ANGELICA ZAVALETA Department: Room: Gender: Assembler Wire Group: : 1970 Requested By: Jen Brock Order Number: [id number] MD: Ruy Glover Measurements Intervals [place] Rate: 101 P: 43 IA: 173 QRS: 67 QRSD: 111 T: 114 QT: 361 QTc: 468 Interpretive Statements Sinus tachycardia Poor R wave progression Nonspecific T wave abnormality Compared to ECG 05/29/2019 08:19:25 No significant change was found Electronically Signed On 12-17-2019 16:04:50 CDT by Ruy Glover [email or web address] <ELECTRONICALLY SIGNED> By: Ruy Glover MD, [facility] 12/17/19 1604 4 4 Ruy Glover MD, [facility] /EPI
== END 2019-12-17 11:22 | disposition home or self-care (01) ==
LOC: ER 07:12
PROVIDERS: Emergency Medicine
DX: R07.89 Other chest pain (principal); M10.9 Gout, unspecified; R79.89 Other specified abnormal findings of blood chemistry; I10 Essential (primary) hypertension; Z95.0 Presence of cardiac pacemaker; Z79.899 Other long term (current) drug therapy; Z88.8 Allergy status to other drugs, medicaments and biological substances

== ENCOUNTER 2020-03-02 07:40 | Emergency (ER) | payer BC ==
[~2020-03-02] VITALS: Ht 177.8 cm; Wt 110.2 kg
[~2020-03-02 07:40] MED LIST changes: +ALLOPURINOL 10100 M3 PO; +METFORMIN HCL500 MG PO
[2020-03-02 07:41] VITALS: BP 93/57
[2020-03-02] MEDS ORDERED: MEDROLDOSEPACK PO (08:05)
== END 2020-03-02 08:18 | disposition home or self-care (01) ==
LOC: ER 07:40
DX: M10.9 Gout, unspecified (principal); I10 Essential (primary) hypertension; Z95.0 Presence of cardiac pacemaker; Z90.89 Acquired absence of other organs; Z79.899 Other long term (current) drug therapy; Z88.8 Allergy status to other drugs, medicaments and biological substances

== ENCOUNTER 2020-03-14 11:17 | Emergency (ER) | payer BC ==
[~2020-03-14] VITALS: Ht 177.8 cm; Wt 120.2 kg
[~2020-03-14 11:17] MED LIST changes: +MEDROLDOSEPACK PO
[2020-03-14] MEDS ORDERED: SPIRONOLACTONE25 MG PO (11:47)
[2020-03-14] MEDS ORDERED: MEDROLDOSEPACK PO (12:05)
[2020-03-14 12:38] VITALS: BP 144/105
== END 2020-03-14 12:39 | disposition home or self-care (01) ==
LOC: ER 11:17
DX: M10.071 Idiopathic gout, right ankle and foot (principal); I10 Essential (primary) hypertension; Z96.651 Presence of right artificial knee joint; Z95.0 Presence of cardiac pacemaker; Z90.89 Acquired absence of other organs; Z79.899 Other long term (current) drug therapy; Z88.8 Allergy status to other drugs, medicaments and biological substances

== ENCOUNTER 2020-03-25 02:06 | Emergency (ER) | payer BC ==
[~2020-03-25] VITALS: Ht 177.8 cm; Wt 122.5 kg
[~2020-03-25 02:06] MED LIST changes: +SPIRONOLACTONE25 MG PO
[2020-03-25] MEDS ORDERED: PERCOCET 7.5-31 EAC1 PO (02:22)
[2020-03-25 02:37] VITALS: BP 148/98
== END 2020-03-25 02:38 | disposition left against medical advice (07) ==
LOC: ER 02:06
DX: M25.562 Pain in left knee (principal); M25.571 Pain in right ankle and joints of right foot; Z53.21 Procedure and treatment not carried out due to patient leaving prior to being seen by health care provider

== ENCOUNTER 2020-09-14 13:03 | Emergency (ER) | payer BC ==
[~2020-09-14] VITALS: Ht 177.8 cm; Wt 126.1 kg
[2020-09-14] MEDS ORDERED: PREDNISONE10 MG PO (13:22)
[2020-09-14 14:03] VITALS: BP 159/89
== END 2020-09-14 14:03 | disposition home or self-care (01) ==
LOC: ER 13:03
DX: M10.9 Gout, unspecified (principal); I10 Essential (primary) hypertension; Z79.899 Other long term (current) drug therapy; Z88.8 Allergy status to other drugs, medicaments and biological substances

== ENCOUNTER 2020-12-01 10:45 | Emergency (ER) | payer BC ==
[~2020-12-01] VITALS: Ht 177.8 cm; Wt 122.9 kg
[~2020-12-01 10:45] MED LIST changes: +PREDNISONE10 MG PO
[2020-12-01 10:53] VITALS: BP 139/87
[2020-12-01] MEDS ORDERED: TRULICITY0.75 MG/0. SUBQ (11:09)
[2020-12-01] MEDS ORDERED: ALLOPURINOL 10100 M1 PO (11:10)
[2020-12-01] MEDS ORDERED: MEDROLDOSEPACK PO (11:27)
[2020-12-01] MEDS ORDERED: PROAIR HFA8.5 GM INH (11:32)
== END 2020-12-01 11:37 | disposition home or self-care (01) ==
LOC: ER 10:45
DX: M10.072 Idiopathic gout, left ankle and foot (principal); I10 Essential (primary) hypertension; M10.9 Gout, unspecified; Z90.89 Acquired absence of other organs; Z95.0 Presence of cardiac pacemaker; Z88.8 Allergy status to other drugs, medicaments and biological substances

== ENCOUNTER 2020-12-14 03:40 | Emergency (ER) | payer BC ==
[~2020-12-14] VITALS: Ht 177.8 cm; Wt 120.7 kg
[~2020-12-14 03:40] MED LIST changes: +ALLOPURINOL 10100 M1 PO; +TRULICITY0.75 MG/0. SUBQ
[2020-12-14 04:34] LABS: ABSOLUTE NEUTROPHILS 3.2 thou/uL (1.4-8.2); BASOPHILS 1.4 % (0.0-2.0); EOSINOPHILS 3.4 % (0.0-3.0); HEMATOCRIT 33.8 % (42.0-52.0); HEMOGLOBIN 11.7 gm/dL (14.0-18.0); LYMPHOCYTES 20.8 % (24.0-44.0); MCH 36.9 pg (26.0-34.0); MCHC 34.6 g/dL (28.0-37.0); MCV 106.5 fL (80.0-100.0); MONOCYTES 7.9 % (1.0-8.0); PLATELET COUNT 154 thou/uL (150-400); POLYS 66.5 % (36.0-66.0); RBC 3.17 mil/uL (4.50-6.00); RDW 16.6 % (10.5-14.5); WBC 4.9 thou/uL (4.0-11.0)
[2020-12-14] MEDS ORDERED: TRESIBA FL100 UNIT/1 SUBQ (04:40)
[2020-12-14] MEDS ORDERED: TRULICITY1.5 MG/0.5 SUBQ (04:41)
[2020-12-14] MEDS ORDERED: PERCOCET 7.5-31 EAC1 PO (04:42)
[2020-12-14] MEDS ORDERED: ALLOPURINOL 10100 M3 PO (04:43)
[2020-12-14] MEDS ORDERED: COZAAR 25 MG TA25 M1 PO (04:43)
[2020-12-14 04:49] LABS: CALCIUM 8.6 mg/dL (8.5-10.1); CREATININE 1.3 mg/dL (0.7-1.3); POTASSIUM 3.8 mmol/L (3.5-5.1)
[2020-12-14 04:59] LABS: ALBUMIN 3.4 g/dL (3.4-5.0); TOTAL PROTEIN 6.5 g/dL (6.4-8.2); TROPONIN-I 0.25 ng/mL (<0.06)
--- NOTE | 2020-12-14 07:23 | EKG ---
[place] [address] [facility] [place] [address] ELECTROCARDIOGRAM REPORT Name: ANGELICA ZAVALETA Room #: [facility]#: [id number] Admission: 12/14/20 Attend Phys: Discharge: Date of : 66 Report #: [id number] [facility] ED Test Date: 2020-12-14 Test Time: 03:48:16 Pat Name: ANGELICA ZAVALETA Department: Room: Gender: M Locksmith: DEMIAN : 1970 Requested By: Milana Andersen Order Number: [id number] MD: Alex Dye Measurements Intervals [place] Rate: 106 P: 53 [place]: 175 QRS: 49 QRSD: 112 T: 93 QT: 357 QTc: 475 Interpretive Statements Sinus tachycardia Probable left atrial enlargement Borderline intraventricular conduction delay Abnormal R-wave progression, late transition Nonspecific T abnormalities, lateral leads Compared to ECG 12/17/2019 07:15:40 Poor R-wave progression no longer present T-wave abnormality still present Electronically Signed On 12-14-2020 7:23:07 CDT by Alex Dye [email or web address] <ELECTRONICALLY SIGNED> By: Alex Dye MD, [facility] 12/14/2023 0348 0348 Alex Dye MD, [facility] /[facility]
[2020-12-14] MEDS ORDERED: LASIX 20 MG TAB20 MG PO (08:33)
[2020-12-14] MEDS ORDERED: MEDROLDOSEPACK PO (08:33)
[2020-12-14] MEDS ORDERED: PROAIR HFA8.5 GM INH (08:33)
[2020-12-14 08:37] VITALS: BP 141/90
== END 2020-12-14 08:37 | disposition home or self-care (01) ==
LOC: ER 03:40
PROVIDERS: Emergency Medicine
DX: J98.01 Acute bronchospasm (principal); Z20.822 Contact with and (suspected) exposure to COVID-19; I11.0 Hypertensive heart disease with heart failure; I50.9 Heart failure, unspecified; Z90.89 Acquired absence of other organs; Z95.0 Presence of cardiac pacemaker; Z88.8 Allergy status to other drugs, medicaments and biological substances

== ENCOUNTER 2021-01-05 06:39 | Emergency (ER) | payer BC ==
[~2021-01-05] VITALS: Ht 177.8 cm; Wt 120.7 kg
[~2021-01-05 06:39] MED LIST changes: +COZAAR 25 MG TA25 M1 PO; +LASIX 20 MG TAB20 MG PO; +TRESIBA FL100 UNIT/1 SUBQ; +TRULICITY1.5 MG/0.5 SUBQ
[2021-01-05] MEDS ORDERED: MEDROLDOSEPACK PO (09:24)
[2021-01-05 09:30] VITALS: BP 139/85
--- NOTE | 2021-01-05 14:43 | EKG ---
[place] [address] [facility] [place] [address] ELECTROCARDIOGRAM REPORT Name: ANGELICA ZAVALETA Room #: [facility]#: [id number] Admission: 01/05/21 Attend Phys: Discharge: 01/05/21 Date of : 66 Report #: [id number] [facility] ED Test Date: 2021-01-05 Test Time: 06:49:50 Pat Name: ANGELICA ZAVALETA Department: Room: Gender: Civil Geotechnical Engineer: MPARK : 1970 Requested By: Jen Brock Order Number: [id number] MD: Alex Dye Measurements Intervals [place] Rate: 135 P: 38 [place]: 139 QRS: 37 QRSD: 99 T: 146 QT: 320 QTc: 480 Interpretive Statements Sinus tachycardia Nonspecific T abnrm, anterolateral leads Borderline prolonged QT interval Compared to ECG 12/14/2020 03:48:16 T-wave abnormality no longer present Electronically Signed On 01-05-2021 14:43:03 CDT by Alex Dye [email or web address] <ELECTRONICALLY SIGNED> By: Alex Dye MD, [facility] 01/05/21 1443 0649 0649 Alex Dye MD, [facility] /EPI
== END 2021-01-05 09:30 | disposition home or self-care (01) ==
LOC: ER 06:39
DX: M10.072 Idiopathic gout, left ankle and foot (principal); M10.071 Idiopathic gout, right ankle and foot; R00.0 Tachycardia, unspecified; I10 Essential (primary) hypertension; M10.9 Gout, unspecified; Z98.890 Other specified postprocedural states; Z90.89 Acquired absence of other organs; Z95.0 Presence of cardiac pacemaker; Z88.8 Allergy status to other drugs, medicaments and biological substances

== ENCOUNTER 2021-01-10 09:49 | Inpatient (IN) | payer BC ==
[~2021-01-10] VITALS: Ht 177.8 cm; Wt 124.7 kg
[2021-01-10 09:50] VITALS: BP 144/98
[2021-01-10 11:33] LABS: HEMATOCRIT 33.4 % (42.0-52.0); HEMOGLOBIN 11.3 gm/dL (14.0-18.0); MCH 37.6 pg (26.0-34.0); MCHC 33.8 g/dL (28.0-37.0); MCV 111.4 fL (80.0-100.0); PLATELET COUNT 432 thou/uL (150-400); RDW 18.4 % (10.5-14.5); WBC 11.3 thou/uL (4.0-11.0)
[2021-01-10 11:36] LABS: CALCIUM 8.6 mg/dL (8.5-10.1); CREATININE 1.3 mg/dL (0.7-1.3); POTASSIUM 4.2 mmol/L (3.5-5.1)
[2021-01-10 11:46] LABS: TOTAL BILIRUBIN 0.6 mg/dL (0.2-1.0); TOTAL PROTEIN 7.1 g/dL (6.4-8.2); TROPONIN-I 0.15 ng/mL (<0.06)
[2021-01-10 12:11] LABS: BE(vivo) 0.3 mmol/L (-2 to +3); PCO2 46.4 mmHg (35.0-45.0); pH 7.366 (7.360-7.450); sO2 42.1 % (92.0-98.0)
[2021-01-10 12:12] LABS: PO2 24.7 mmHg (80.0-100.0)
[2021-01-10 12:17] LABS: ABSOLUTE NEUTROPHILS 10.1 thou/uL (1.4-8.2)
[2021-01-10 12:18] LABS: ANISOCYTOSIS 2+; MACROCYTES 2+
[2021-01-10 14:00] VITALS: BP 128/89
[2021-01-10 15:04] VITALS: BP 148/89
[2021-01-10 15:06] LABS: URINE BILIRUBIN NEGATIVE (Negative); URINE BLOOD 1+ (Negative); URINE CLARITY CLEAR; URINE COLOR YELLOW; URINE GLUCOSE-RANDOM* NEGATIVE (Negative); URINE KETONES NEGATIVE (Negative); URINE LEUKOCYTES 1+ (Negative); URINE NITRITE NEGATIVE (Negative); URINE PROTEIN (DIPSTICK) NEGATIVE (Negative); URINE UROBILINOGEN 0.2 E.U./dl (0.2-1.0)
[2021-01-10 15:17] LABS: SQUAMOUS 4-10 Moderate /LPF (0-3)
[2021-01-10 15:18] LABS: BACTERIA 1-9 Few /HPF (None Seen); URINE RBC 1-2 Rare /HPF (NONE SEEN); URINE WBC 1-5 Rare /HPF (NONE SEEN)
[2021-01-10 15:22] LABS: CRYSTALS None Seen /LPF (None Seen)
--- NOTE | 2021-01-10 16:29 | NUR ---
ADMISSION NOTE: PT ADMITTED TO ROOM 357, ALERT AND ORIENTED X4. DENIES CHEST PAIN, NAUSEA AND VOMITTING. ON 2L OF OXYGEN, SOB WITH EXERTION AND LABORED BREATHING. MANUFACTURING COST ESTIMATOR PLACED, SINUS TACHY WITH HR BTW 110-125. ASSESSMENT AND ADMISSION COMPLETED. CONSENTS SIGNED BY PATIENT. SKIN INTACT. UP IN CHAIR. USES URINAL. FALL PRECAUTIONS IN LACE. CALL LIGHT AND TABLE IN REACH. DENIES ANY NEEDS AT MOMENT. WILL CONTINUE TO MONITOR
[2021-01-10 20:37] VITALS: BP 102/68
--- NOTE | 2021-01-10 21:02 | NUR ---
PT UP IN LOUNGE CHAIR INTERMITTENTLY RESTING, HAD FAMILY VISIT. O2 PER NC. PT REQUESTING SNACK X 2. PT REPORTED BILATERAL FOOT AND ANKLE PAIN REQUESTING HOME MED PERCOCET BE RESTARTED, PROVIDER CALLED AND LEFT MESSAGE. PT ASKING FOR CLARIFICATION THAT CT DID NOT SHOW PE. PT ASKING WHAT THE NEXT STEP IN HIS CARE WILL BE. PT VERBALIZED UNDERSTANDING OF FR. PT CALLS FOR ASSISTANCE.
--- NOTE | 2021-01-10 23:51 | NUR ---
PT ON REST OXIMETRY PT WAS DESATURATING ON ROOM AIR PLACED ON 3L BY RESPIRATORY THERAPIST.
[2021-01-11 02:52] VITALS: BP 94/66
[2021-01-11 07:02] VITALS: BP 108/71
--- NOTE | 2021-01-11 07:17 | EKG ---
[address] [place] [address] ELECTROCARDIOGRAM REPORT Name: ANGELICA ZAVALETA Room #: 357-P ADM IN M.R.#: [id number] Admission: 01/10/21 Attend Phys: Rambo Valles MD Discharge: Date of : 66 Report #: [id number] [facility] ED Test Date: 2021-01-10 Test Time: 10:31:59 Pat Name: ANGELICA ZAVALETA Department: Room: 357 Gender: M Appellate Court Clerk: DEMIAN : 1970 Requested By: Matthew Adrian Order Number: [id number] MD: Alex Dye Measurements Intervals [place] Rate: 115 P: 51 [place]: 168 QRS: 52 QRSD: 106 T: 107 QT: 312 QTc: 432 Interpretive Statements Sinus tachycardia Nonspecific T abnrm, anterolateral leads Compared to ECG 01/05/2021 06:49:50 No significant changes Electronically Signed On 01-11-2021 7:17:16 CDT by Alex Dye [email or web address] <ELECTRONICALLY SIGNED> By: Alex Dye MD, [facility] 01/11/2117 1031 103 Alex Dye MD, [facility] /EPI
[2021-01-11 08:27] LABS: BE(vivo) 2.4 mmol/L (-2 to +3); HCO3 27.2 mmol/L (22.0-26.0); PO2 68.9 mmHg (80.0-100.0); pH 7.419 (7.360-7.450); sO2 94.1 % (92.0-98.0)
[2021-01-11 09:21] LABS: ABSOLUTE NEUTROPHILS 6.2 thou/uL (1.4-8.2); BASOPHILS 0.8 % (0.0-2.0); EOSINOPHILS 1.7 % (0.0-3.0); HEMATOCRIT 33.4 % (42.0-52.0); HEMOGLOBIN 11.2 gm/dL (14.0-18.0); LYMPHOCYTES 11.2 % (24.0-44.0); MCH 37.2 pg (26.0-34.0); MCHC 33.5 g/dL (28.0-37.0); MONOCYTES 7.5 % (1.0-8.0); PLATELET COUNT 454 thou/uL (150-400); POLYS 78.8 % (36.0-66.0); RDW 18.2 % (10.5-14.5); WBC 7.9 thou/uL (4.0-11.0)
[2021-01-11 09:31] LABS: CALCIUM 8.4 mg/dL (8.5-10.1); CREATININE 1.3 mg/dL (0.7-1.3); MAGNESIUM 1.2 mg/dL (1.8-2.4); POTASSIUM 4.6 mmol/L (3.5-5.1)
--- NOTE | 2021-01-11 10:46 | NUR ---
ORDERS RECEIVED FOR PT EVAL AND TREAT. Pt ADMITTED FOR SOB, LE SWELLING, SYSTOLIC HF EXACERBATION. RECENT GOUT FLARE UP. Pt ON RA W/ SATS 93%. BILAT LE AROM WFL FOR PT TASKS. BILAT LE MMT GROSSLY 5/5. PAIN IN BILAT ANKLES AND R KNEE D/T GOUT. LIVES IN THREE LEVEL HOME W/ FIANCE, HAS HANDRAILS. NO AD USE. WORKS ON [employer] AT [employer] BUT IS CURRENTLY ON SHORT TERM DISABILITY. NO RECENT FALLS. Pt HAS BEEN UP AD OLVIN W/O DIFFICULTY AND Pt POLITELY DECLINING ACUTE PT NEEDS AT THIS TIME BUT STATED 'YOU COULD COME CHECK ON ME FROM TIME TO TIME.' ACUTE PT TO SIGN OFF. PLEASE CONSIDER RE-CONSULTING PT SERVICES IF Pt HAS A CHANGE IN FUNCTION.
[2021-01-11 12:01] LABS: ANISOCYTOSIS 1+; MACROCYTES 2+; PLATELET ESTIMATE NORMAL
--- NOTE | 2021-01-11 13:21 | NUR ---
UP IN CHAIR, ON ROOM AIR NOW. DENIES SOB AND NO SIGNS OF DISTRESS NOTED. UP AD OLVIN PER PHYSICAL THERAPY. ALERT AND ORIENTED X4. FAMILY VISITING. DENIES ANY NEEDS AT MOMENT.
[2021-01-11 15:02] VITALS: BP 93/63
[2021-01-11 19:42] VITALS: BP 100/67
--- NOTE | 2021-01-11 21:53 | NUR ---
PT SITTING IN LOUNGE CHAIR TALKING TO FAMILY AND FRIENDS. PT INDEPENDENT WITH AMBULATION. REMAINING ON ROOM AIR. PT ASKING FOR FREQUENT SNACKS. PT VERBALIZED UNERSTANDING OF FR. PT CALLS FOR ASSISTANCE.
[2021-01-12 03:27] VITALS: BP 112/77
[2021-01-12 04:23] LABS: HEMATOCRIT 33.9 % (42.0-52.0); HEMOGLOBIN 11.6 gm/dL (14.0-18.0); MCH 37.4 pg (26.0-34.0); MCHC 34.2 g/dL (28.0-37.0); MCV 109.4 fL (80.0-100.0); RBC 3.09 mil/uL (4.50-6.00); RDW 17.9 % (10.5-14.5)
[2021-01-12 04:49] LABS: CALCIUM 8.7 mg/dL (8.5-10.1); CREATININE 1.4 mg/dL (0.7-1.3); POTASSIUM 3.9 mmol/L (3.5-5.1); URIC ACID* 8.9 mg/dL (3.5-7.2)
[2021-01-12 07:02] VITALS: BP 113/74
--- NOTE | 2021-01-12 09:44 | 2DMMODE ---
[facility] [place] [address] 2 D/M-MODE ECHOCARDIOGRAM Name: ANGELICA ZAVALETA Room #: 357-P ADM IN M.R.#: [id number] Admission: 01/10/21 Attend Phys: Rambo Valles MD Discharge: Date of : 66 Report #: [id number] THIS REPORT FOR: cc: Compa Scott Louis D. DO Santiago, Patrick MD [facility] ~ ADDENDUM APPROVED REPORT Study performed: 01/12/2021 08:43:31 EXAM: Comprehensive 2D, Doppler, and color-flow Echocardiogram Patient Location: Bedside Room #: 357 Status: routine BSA: 2.39 HR: 102 bpm BP: 113/74 mmHg Rhythm: Tachycardia Other Information Study Quality: Adequate Indications Congestive Heart Failure Dyspnea Hx: Mild CAD, cardiomyopathy, pacer/defib, HTN, DM, morbid obesity. 2D Dimensions RVDd: 36.00 mm IVSd: 12.00 (7-11mm) LVOT Diam: 24.00 (18-24mm) LVDd: 64.90 mm PWd: 12.00 (7-11mm) Ascending Ao: 40.00 (22-36mm) LVDs: 54.00 (25-40mm) Left Atrium: 53.00 (27-40mm) Aortic Root: 38.02 mm Volumes Left Atrial Volume (Systole) Single Plane 4CH: 77.83 mL Single Plane 2CH: 76.40 mL LA ESV Index: 35.00 mL/m2 Aortic Valve AoV Peak Tim.: 1.27 m/s [facility] [address] [place] [address] 2 D/M-MODE ECHOCARDIOGRAM Name: ANGELICA ZAVALETA Room #: 357-P [facility] IN Codie.#: [id number] Admission: 01/10/21 Attend Phys: Rambo Valles MD Discharge: Date of : 66 Report #: [id number] AO Peak Gr.: 6.42 mmHg LVOT Max P.17 mmHg LVOT Max V: 0.74 m/s BANG Vmax: 2.70 cm2 Pulmonary Valve PV Peak Tim.: 0.98 m/s PV Peak Gr.: 3.86 mmHg Tricuspid Valve TR Peak Tim.: 1.97 m/s TR Peak Gr.: 15.45 mmHg Left Ventricle Left ventricle is moderately dilated. Mild concentric left ventricular hypertrophy. Left ventricular systolic function is severely decreased. LVEF is 20-25%. This study is not technically sufficient to allow evaluation of the LV diastolic function due to tachycardia. Right Ventricle The right ventricle is normal size. Right ventricle is hypokinetic. Device lead is present in the right ventricle. Atria Left atrium is dilated. The right atrium size is normal. Aortic Valve The aortic valve is normal in structure. Trace aortic regurgitation. There is no aortic valvular stenosis. Mitral Valve The mitral valve is normal in structure. Trace mitral valve insufficiency No evidence of mitral valve stenosis. Tricuspid Valve The tricuspid valve is normal in structure. Trace tricuspid regurgitation. Estimated PAP is 15mmHg plus the right atrial pressure. Pulmonic Valve The pulmonary valve is normal in structure. Mild pulmonic regurgitation. Great Vessels Aortic root is borderline dilated. The ascending aorta is mildly dilated. IVC is not well visualized. [facility] [place] [address] 2 D/M-MODE ECHOCARDIOGRAM Name: ANGELICA ZAVALETA Room #: [facility] ADM IN M.R.#: [id number] Admission: 01/10/21 Attend Phys: Rambo Valles MD Discharge: Date of : 66 Report #: [id number] Pericardium There is no pericardial effusion. <Conclusion> Mild to moderate left ventricular enlargement Normal left ventricular wall thickness Global hypokineses ejection fraction 20-25% Right ventricle normal size/hypokinetic Mild to moderate left atrial enlargement Color-flow Doppler study was performed of the aortic/mitral/tricuspid/pulmonary valve Normal aortic valve structure and function Trace of mitral valve insufficiency Trace tricuspid valve insufficiency with a PA pressure estimated 15 mmHg Pacer wire detected in the RV Ascending aorta mildly dilated No pericardial effusion <ELECTRONICALLY SIGNED> By: Alex Dye MD, [facility] 01/12/21 0944 0944 3 Alex Dye MD, [facility]ACC /INF
[2021-01-12] MEDS ORDERED: LEVOFLOXACIN750 MG PO (14:35)
[2021-01-12] MEDS ORDERED: PREDNISONE 20 M20 M1 PO (14:36)
[2021-01-12 14:41] VITALS: BP 113/74
--- NOTE | 2021-01-12 15:13 | NUR ---
SW received consult. Reviewed chart and spoke with nursing and attending physician. Pt was admitted from home due to CHF. Pt is medically stable for discharge home today. Pt off O2. Pt has been discharged from therapy. No discharge needs identified. Pt's family to provide transportation home. SW is available to assist should needs arise.
== END 2021-01-12 15:20 | disposition home or self-care (01) | DRG 871 ==
LOC: ER 09:49 → 3W 13:35 → EROBS 13:35 → 3W 13:55
PROVIDERS: Emergency Medicine; Hospitalist; ADMIT Internal Medicine; ATTEND Internal Medicine
DX: A41.9 Sepsis, unspecified organism (principal); G92 Toxic encephalopathy; I50.23 Acute on chronic systolic (congestive) heart failure; J96.01 Acute respiratory failure with hypoxia; M10.9 Gout, unspecified; E66.01 Morbid (severe) obesity due to excess calories; I25.10 Atherosclerotic heart disease of native coronary artery without angina pectoris; E11.9 Type 2 diabetes mellitus without complications; F41.1 Generalized anxiety disorder; D86.9 Sarcoidosis, unspecified; I11.0 Hypertensive heart disease with heart failure; R53.81 Other malaise; Z96.651 Presence of right artificial knee joint; I25.5 Ischemic cardiomyopathy; Z20.822 Contact with and (suspected) exposure to COVID-19; Z95.0 Presence of cardiac pacemaker; Z88.8 Allergy status to other drugs, medicaments and biological substances; Z83.3 Family history of diabetes mellitus; Z82.49 Family history of ischemic heart disease and other diseases of the circulatory system; Z68.39 Body mass index [BMI] 39.0-39.9, adult
CPT/HCPCS: 10879

== ENCOUNTER 2021-01-12 16:57 | Emergency (ER) | payer BC ==
[~2021-01-12] VITALS: Ht 177.8 cm; Wt 122.5 kg
[~2021-01-12 16:57] MED LIST changes: +LEVOFLOXACIN750 MG PO; +PREDNISONE 20 M20 M1 PO
[2021-01-12 18:04] LABS: BASOPHILS 0.5 % (0.0-2.0); EOSINOPHILS 0.4 % (0.0-3.0); HEMATOCRIT 38.7 % (42.0-52.0); HEMOGLOBIN 12.7 gm/dL (14.0-18.0); LYMPHOCYTES 4.3 % (24.0-44.0); MCHC 32.9 g/dL (28.0-37.0); MCV 109.4 fL (80.0-100.0); MONOCYTES 3.3 % (1.0-8.0); PLATELET COUNT 470 thou/uL (150-400); POLYS 91.5 % (36.0-66.0); RBC 3.54 mil/uL (4.50-6.00); RDW 17.5 % (10.5-14.5); WBC 5.4 thou/uL (4.0-11.0)
[2021-01-12 18:05] LABS: CALCIUM 8.9 mg/dL (8.5-10.1); CREATININE 1.6 mg/dL (0.7-1.3)
[2021-01-12 18:08] LABS: POTASSIUM 5.2 mmol/L (3.5-5.1)
[2021-01-12 18:11] LABS: ALBUMIN 3.1 g/dL (3.4-5.0); TOTAL BILIRUBIN 0.9 mg/dL (0.2-1.0); TOTAL PROTEIN 7.6 g/dL (6.4-8.2)
[2021-01-12 18:54] LABS: ANISOCYTOSIS 1+; MACROCYTES 1+
[2021-01-12 19:40] VITALS: BP 105/69
--- NOTE | 2021-01-13 07:25 | EKG ---
[place] [address] [facility] [place] [address] ELECTROCARDIOGRAM REPORT Name: ANGELICA ZAVALETA [facility] [id number] Admission: 01/12/21 Attend Phys: Discharge: 01/12/21 Date of : 66 Report #: [id number] [facility] ED Test Date: 2021-01-12 Test Time: 17:42:52 Pat Name: ANGELICA ZAVALETA Department: Room: Gender: M Boat Buffer Plastic: ALEENA EVANS : 1970 Requested By: Natanael Hankins Order Number: [id number] MD: Alex Dye Measurements Intervals [place] Rate: 93 P: 22 [place]: 165 QRS: 5 QRSD: 110 T: 75 QT: 414 QTc: 515 Interpretive Statements Sinus rhythm Probable left atrial enlargement Nonspecific T abnrm, anterolateral leads Prolonged QT interval Compared to ECG 01/10/2021 10:31:59 Prolonged QT interval now present Sinus tachycardia no longer present Electronically Signed On 01-13-2021 7:25:38 CDT by Alex Dye [email or web address] <ELECTRONICALLY SIGNED> By: Alex Dye MD, [facility] [phone] [phone] 41 Alex Dye MD, [facility] /EPI
== END 2021-01-12 19:41 | disposition home or self-care (01) ==
LOC: ER 16:57
PROVIDERS: Emergency Medicine
DX: R20.2 Paresthesia of skin (principal); I10 Essential (primary) hypertension; M10.9 Gout, unspecified; Z98.890 Other specified postprocedural states; Z90.89 Acquired absence of other organs; Z79.84 Long term (current) use of oral hypoglycemic drugs; Z79.899 Other long term (current) drug therapy; Z72.89 Other problems related to lifestyle; Z88.8 Allergy status to other drugs, medicaments and biological substances

== ENCOUNTER 2021-02-02 07:35 | Emergency (ER) | payer BC ==
[~2021-02-02] VITALS: Ht 177.8 cm; Wt 117.0 kg
[2021-02-02 07:39] VITALS: BP 128/88
[2021-02-02] MEDS ORDERED: TORADOL 10 MG T10 MG PO (08:41)
== END 2021-02-02 08:43 | disposition home or self-care (01) ==
LOC: ER 07:35
DX: M25.562 Pain in left knee (principal); M25.561 Pain in right knee; M25.572 Pain in left ankle and joints of left foot; I42.9 Cardiomyopathy, unspecified; I10 Essential (primary) hypertension; D86.9 Sarcoidosis, unspecified; Z90.89 Acquired absence of other organs; Z79.51 Long term (current) use of inhaled steroids; Z79.899 Other long term (current) drug therapy; Z79.891 Long term (current) use of opiate analgesic; Z88.8 Allergy status to other drugs, medicaments and biological substances

== ENCOUNTER 2021-02-09 15:53 | Emergency (ER) | payer BC ==
[~2021-02-09] VITALS: Ht 177.8 cm; Wt 117.0 kg
[~2021-02-09 15:53] MED LIST changes: +TORADOL 10 MG T10 MG PO
[2021-02-09 16:38] LABS: ABSOLUTE NEUTROPHILS 3.4 thou/uL (1.4-8.2); HEMATOCRIT 35.5 % (42.0-52.0); HEMOGLOBIN 11.7 gm/dL (14.0-18.0); LYMPHOCYTES 16.6 % (24.0-44.0); MCH 33.8 pg (26.0-34.0); MCHC 32.9 g/dL (28.0-37.0); MCV 102.8 fL (80.0-100.0); PLATELET COUNT 260 thou/uL (150-400); POLYS 67.4 % (36.0-66.0); RBC 3.45 mil/uL (4.50-6.00); RDW 17.1 % (10.5-14.5); WBC 5.1 thou/uL (4.0-11.0)
[2021-02-09 16:44] LABS: CALCIUM 8.5 mg/dL (8.5-10.1); CREATININE 1.4 mg/dL (0.7-1.3); POTASSIUM 4.4 mmol/L (3.5-5.1)
[2021-02-09 16:53] LABS: ALBUMIN 3.4 g/dL (3.4-5.0); TOTAL BILIRUBIN 0.8 mg/dL (0.2-1.0); TOTAL PROTEIN 7.1 g/dL (6.4-8.2); TROPONIN-I 0.14 ng/mL (<0.06)
[2021-02-09 19:52] VITALS: BP 115/84
--- NOTE | 2021-02-10 07:30 | EKG ---
[place] [address] [facility] [place] [address] ELECTROCARDIOGRAM REPORT Name: ANGELICA ZAVALETA [facility] [id number] Admission: 02/09/21 Attend Phys: Discharge: 02/09/21 Date of : 66 Report #: [id number] [facility] ED Test Date: 2021-02-09 Test Time: 16:25:29 Pat Name: ANGELICA ZAVALETA Department: Room: Gender: M Measurement Advisor: : 1970 Requested By: Josué Reynolds Order Number: [id number] MD: Alex Dye Measurements Intervals [place] Rate: 101 P: 39 [place]: 179 QRS: 54 QRSD: 110 T: 138 QT: 378 QTc: 490 Interpretive Statements Sinus tachycardia Probable left atrial enlargement Abnrm T, consider ischemia, anterolateral lds Compared to ECG 01/12/2021 17:42:52 Possible ischemia now present Sinus rhythm no longer present Prolonged QT interval no longer present Electronically Signed On 02-10-2021 7:30:23 CDT by Alex Dye [email or web address] <ELECTRONICALLY SIGNED> By: Alex Dye MD, [facility] 02/10/2130 1625 1625 Alex Dye MD, [facility] /EPI
== END 2021-02-09 19:53 | disposition home or self-care (01) ==
LOC: ER 15:53
PROVIDERS: Emergency Medicine
DX: I11.0 Hypertensive heart disease with heart failure (principal); I50.9 Heart failure, unspecified; R06.02 Shortness of breath; D86.3 Sarcoidosis of skin; Z90.89 Acquired absence of other organs; Z79.899 Other long term (current) drug therapy; Z88.6 Allergy status to analgesic agent

== ENCOUNTER 2021-02-22 07:06 | Emergency (ER) | payer BC ==
[~2021-02-22] VITALS: Ht 177.8 cm; Wt 112.5 kg
[2021-02-22] MEDS ORDERED: FUROSEMIDE 20 M20 M1 PO (07:24)
--- NOTE | 2021-02-22 07:27 | EKG ---
[address] [place] [address] ELECTROCARDIOGRAM REPORT Name: ANGELICA ZAVALETA Room #: [facility]..#: [id number] Admission: Attend Phys: Discharge: Date of : 66 Report #: [id number] [facility] ED Test Date: 2021-02-22 Test Time: 07:16:48 Pat Name: ANGELICA ZAVALETA Department: Room: Gender: M Cellular Equipment Installer: : 1970 Requested By: Marshal Bird Order Number: [id number] MD: Alex Dye Measurements Intervals [place] Rate: 108 P: 45 [place]: 170 QRS: 43 QRSD: 114 T: 124 QT: 334 QTc: 448 Interpretive Statements Sinus tachycardia Probable left atrial enlargement Borderline intraventricular conduction delay Abnormal T, consider ischemia, lateral leads Compared to ECG 02/09/2021 16:25:29 T-wave abnormality now present Possible ischemia still present Electronically Signed On 02-22-2021 7:27:45 CDT by Alex Dye [email or web address] <ELECTRONICALLY SIGNED> By: Alex Dye MD, [facility] 02/22/21726 5 5 Alex Dye MD, FAC /EPI
[2021-02-22 08:01] LABS: ABSOLUTE NEUTROPHILS 2.3 thou/uL (1.4-8.2); BASOPHILS 2.7 % (0.0-2.0); EOSINOPHILS 3.1 % (0.0-3.0); HEMATOCRIT 34.7 % (42.0-52.0); HEMOGLOBIN 11.9 gm/dL (14.0-18.0); MCH 34.1 pg (26.0-34.0); MCHC 34.2 g/dL (28.0-37.0); MCV 99.8 fL (80.0-100.0); MONOCYTES 13.2 % (1.0-8.0); PLATELET COUNT 264 thou/uL (150-400); RBC 3.48 mil/uL (4.50-6.00); RDW 16.3 % (10.5-14.5); WBC 3.8 thou/uL (4.0-11.0)
[2021-02-22 08:43] LABS: CALCIUM 8.7 mg/dL (8.5-10.1); CREATININE 1.4 mg/dL (0.7-1.3); POTASSIUM 4.3 mmol/L (3.5-5.1)
[2021-02-22 08:53] LABS: ALBUMIN 3.5 g/dL (3.4-5.0); MAGNESIUM 1.5 mg/dL (1.8-2.4); TOTAL BILIRUBIN 0.6 mg/dL (0.2-1.0); TOTAL PROTEIN 6.8 g/dL (6.4-8.2); TROPONIN-I 0.11 ng/mL (<0.06)
[2021-02-22 09:57] VITALS: BP 134/98
== END 2021-02-22 09:58 | disposition home or self-care (01) ==
LOC: ER 07:06
PROVIDERS: Emergency Medicine
DX: R06.00 Dyspnea, unspecified (principal); Z20.822 Contact with and (suspected) exposure to COVID-19; R06.02 Shortness of breath; I10 Essential (primary) hypertension; Z90.89 Acquired absence of other organs; Z79.2 Long term (current) use of antibiotics; Z79.899 Other long term (current) drug therapy; Z88.8 Allergy status to other drugs, medicaments and biological substances

== ENCOUNTER 2021-05-06 04:49 | Emergency (ER) | payer BC ==
[~2021-05-06] VITALS: Ht 177.8 cm; Wt 121.6 kg
[~2021-05-06 04:49] MED LIST changes: +FUROSEMIDE 20 M20 M1 PO
[2021-05-06 05:38] LABS: HEMATOCRIT 29.9 % (42.0-52.0); HEMOGLOBIN 10.3 gm/dL (14.0-18.0); MCH 36.7 pg (26.0-34.0); MCHC 34.3 g/dL (28.0-37.0); MCV 106.9 fL (80.0-100.0); PLATELET COUNT 204 thou/uL (150-400); RDW 23.4 % (10.5-14.5); WBC 6.2 thou/uL (4.0-11.0)
[2021-05-06 05:51] LABS: CALCIUM 8.1 mg/dL (8.5-10.1); CREATININE 1.2 mg/dL (0.7-1.3); POTASSIUM 4.3 mmol/L (3.5-5.1)
[2021-05-06 06:01] LABS: ALBUMIN 3.7 g/dL (3.4-5.0); TOTAL BILIRUBIN 0.8 mg/dL (0.2-1.0); TOTAL PROTEIN 6.7 g/dL (6.4-8.2)
--- NOTE | 2021-05-06 07:08 | EKG ---
[place] [address] [facility] [place] [address] ELECTROCARDIOGRAM REPORT Name: ANGELICA ZAVALETA [facility] [id number] Admission: 05/06/21 Attend Phys: Discharge: Date of : 66 Report #: [id number] [facility] ED Test Date: 2021-05-06 Test Time: 05:10:53 Pat Name: ANGELICA ZAVALETA Department: Room: Gender: M Teenage Program Director: ABRAHAM : 1970 Requested By: Matthew Adrian Order Number: [id number] MD: Alex Dye Measurements Intervals [place] Rate: 109 P: 58 [place]: 166 QRS: 57 QRSD: 105 T: 89 QT: 343 QTc: 463 Interpretive Statements Sinus tachycardia Probable left atrial enlargement Borderline T abnormalities, lateral leads Baseline wander in lead(s) V3 Compared to ECG 02/22/2021 07:16:48 Possible ischemia no longer present T-wave abnormality still present Electronically Signed On 05-06-2021 7:08:10 CDT by Alex Dye [email or web address] <ELECTRONICALLY SIGNED> By: Alex Dye MD, [facility] 05/06/21 0708 Alex Dye MD, [facility] /EPI
[2021-05-06] MEDS ORDERED: AUGMENTIN 875-1 EACH PO (08:11)
[2021-05-06] MEDS ORDERED: DOXYCYCLINE 10100 MG PO (08:11)
[2021-05-06 08:29] VITALS: BP 132/93
[2021-05-06 10:30] LABS: ABSOLUTE NEUTROPHILS 4.1 thou/uL (1.4-8.2); ANISOCYTOSIS 2+; MACROCYTES 1+
== END 2021-05-06 08:45 | disposition home or self-care (01) ==
LOC: ER 04:49
PROVIDERS: Emergency Medicine
DX: R06.00 Dyspnea, unspecified (principal); Z20.822 Contact with and (suspected) exposure to COVID-19; R06.02 Shortness of breath; R05.9 Cough, unspecified; I10 Essential (primary) hypertension; Z90.89 Acquired absence of other organs; Z79.899 Other long term (current) drug therapy; Z88.5 Allergy status to narcotic agent; Z88.8 Allergy status to other drugs, medicaments and biological substances

== ENCOUNTER 2021-06-04 17:31 | Emergency (ER) | payer BC ==
[~2021-06-04] VITALS: Ht 177.8 cm; Wt 116.6 kg
[~2021-06-04 17:31] MED LIST changes: +DOXYCYCLINE 10100 MG PO
[2021-06-04 18:33] LABS: ABSOLUTE NEUTROPHILS 6.6 thou/uL (1.4-8.2); BASOPHILS 0.4 % (0.0-2.0); EOSINOPHILS 0.3 % (0.0-3.0); HEMATOCRIT 25.5 % (42.0-52.0); HEMOGLOBIN 9.3 gm/dL (14.0-18.0); LYMPHOCYTES 6.8 % (24.0-44.0); MCH 40.1 pg (26.0-34.0); MCHC 36.4 g/dL (28.0-37.0); MCV 110.4 fL (80.0-100.0); MONOCYTES 1.5 % (1.0-8.0); PLATELET COUNT 171 thou/uL (150-400); RBC 2.31 mil/uL (4.50-6.00); WBC 7.3 thou/uL (4.0-11.0)
[2021-06-04 18:42] LABS: CALCIUM 8.4 mg/dL (8.5-10.1); CREATININE 1.2 mg/dL (0.7-1.3)
[2021-06-04 18:51] LABS: ALBUMIN 4.1 g/dL (3.4-5.0); TOTAL BILIRUBIN 2.2 mg/dL (0.2-1.0)
[2021-06-04 20:23] LABS: ANISOCYTOSIS 1+; MACROCYTES 1+
[2021-06-04 21:37] VITALS: BP 152/98
--- NOTE | 2021-06-05 10:31 | EKG ---
[place] [address] [facility] [place] [address] ELECTROCARDIOGRAM REPORT Name: ANGELICA ZAVALETA [id number] Admission: 06/04/21 Attend Phys: Discharge: 06/04/21 Date of : 66 Report #: [id number] [facility] ED Test Date: 2021-06-04 Test Time: 17:37:57 Pat Name: ANGELICA ZAVALETA Department: Room: Gender: Staff Nurse [employer]: : 1970 Requested By: Matthew Adrian Order Number: [id number] MD: Tai Suarez Measurements Intervals [place] Rate: 110 P: 33 [place]: 168 QRS: 21 QRSD: 109 T: 141 QT: 339 QTc: 459 Interpretive Statements Sinus tachycardia Abnormal T, consider ischemia, lateral leads Compared to ECG 05/06/2021 05:10:53 Possible ischemia now present T-wave abnormality still present Electronically Signed On 06-05-2021 10:31:09 [employer] COLLECTION CLERK by Tia Suarez [email or web address] <ELECTRONICALLY SIGNED> By: Tai Suarez MD 06/05/21 1031 1737 1737 Tai Suarez MD /SUSANA
== END 2021-06-04 21:44 | disposition home or self-care (01) ==
LOC: ER 17:31
PROVIDERS: Emergency Medicine
DX: I11.0 Hypertensive heart disease with heart failure (principal); Z20.822 Contact with and (suspected) exposure to COVID-19; I50.9 Heart failure, unspecified; M10.9 Gout, unspecified; Z95.0 Presence of cardiac pacemaker; Z98.890 Other specified postprocedural states; Z79.899 Other long term (current) drug therapy; Z88.8 Allergy status to other drugs, medicaments and biological substances

== ENCOUNTER 2021-06-14 14:41 | Inpatient (IN) | payer BC ==
[~2021-06-14] VITALS: Ht 177.8 cm; Wt 112.5 kg
[2021-06-14 14:41] VITALS: BP 122/76
[2021-06-14 15:17] LABS: HEMATOCRIT 20.5 % (42.0-52.0); MCH 38.3 pg (26.0-34.0); MCHC 34.3 g/dL (28.0-37.0); MCV 111.6 fL (80.0-100.0); PLATELET COUNT 148 thou/uL (150-400); RBC 1.83 mil/uL (4.50-6.00); RDW 16.2 % (10.5-14.5); WBC 4.5 thou/uL (4.0-11.0)
[2021-06-14 15:24] LABS: CALCIUM 8.3 mg/dL (8.5-10.1); CREATININE 1.2 mg/dL (0.7-1.3)
[2021-06-14 15:27] LABS: POTASSIUM 5.7 mmol/L (3.5-5.1)
[2021-06-14 16:14] LABS: ABSOLUTE NEUTROPHILS 3.3 thou/uL (1.4-8.2)
[2021-06-14 16:15] LABS: ANISOCYTOSIS 1+; MACROCYTES 1+
[2021-06-14] MEDS ORDERED: DULOXETINE HCL30 MG PO (16:58)
[2021-06-14 17:16] LABS: % SATURATION 63 % (20-39); IRON 176 ug/dL (65-175); TIBC 278 ug/dL (250-450)
[2021-06-14 17:43] LABS: FERRITIN 366 ng/mL (26-388)
--- NOTE | 2021-06-14 18:02 | NUR ---
PT NOTES AT THIS TIME THAT HE DOES TAKE AN ERECTILE DYSFUNCTION PILL AND IS WONDERING IF THERE IS ANY COORELATION. PT STATES HE HAS NOT MENTIONED THIS MEDICAITON AT PREVIOUS VISITS BECUASE HE BUYS IT ONLINE AND IT IS NOT PRESCRIBED. RN WENT OVER THE IMPORTANCE OF LISTING ALL MEDICATIONS D/T POTENTIAL SIDE EFFECTS AND RISKS. PT VERBALIZED UNDERSTANDING. WILL NOTIFY HOSPITALIST
[2021-06-14 20:13] VITALS: BP 128/80
--- NOTE | 2021-06-15 00:04 | NUR ---
patient upset d/t not being able to eat solid food. i had extended conversation with patient re: r/o GI bleed status, low H&H, possibility of hemorrhage. he decided to leave hospital AMA. i made Michell Klein NP aware of above. patient was fully ambulatory without pain when he decided to leave hospital.
[2021-06-15 00:07] VITALS: BP 128/80
--- NOTE | 2021-06-15 00:11 | NUR ---
Michell Klein INTELLIGENCE SENIOR SERGEANT here to see patient.
--- NOTE | 2021-06-15 08:45 | EKG ---
[place] [address] [facility] [place] [address] ELECTROCARDIOGRAM REPORT Name: ANGELICA ZAVALETA Room #: 170-11 [facility] IN .R.#: [id number] Admission: 06/14/21 Attend Phys: Joreg Elias MD Discharge: 06/15/21 Date of : 66 Report #: [id number] [facility] ED Test Date: 2021-06-14 Test Time: 14:54:13 Pat Name: ANGELICA ZAVALETA Department: Room: 170 Gender: M Automotive Consultant: Codie ESTEVEZ : 1970 Requested By: Vladislav Graves Order Number: [id number] MD: Ruy Glover Measurements Intervals [place] Rate: 103 P: 52 [place]: 171 QRS: 46 QRSD: 116 T: 112 QT: 352 QTc: 461 Interpretive Statements Sinus tachycardia Nonspecific T abnormalities, lateral leads Compared to ECG 06/04/2021 17:37:57 No significant change Electronically Signed On 06-15-2021 8:45:01 EVP GENERAL COUNSEL by Ruy Glover [email or web address] <ELECTRONICALLY SIGNED> By: Ruy Glover MD, [facility] 06/15/21 0845 1454 1454 Ruy Glover MD, [facility] /EPI
== END 2021-06-15 01:00 | disposition left against medical advice (07) | DRG 291 ==
LOC: ER 14:41 → EROBS 17:48
PROVIDERS: Emergency Medicine; Nurse Practitioner; ADMIT Hospitalist; ATTEND Hospitalist
DX: I11.0 Hypertensive heart disease with heart failure (principal); I50.21 Acute systolic (congestive) heart failure; Z20.822 Contact with and (suspected) exposure to COVID-19